=== PATIENT | male | born 1955 | race Caucasian/White ===

== ENCOUNTER 2017-07-11 10:52 | Emergency (ER) | payer OTHER ==
--- OUTSIDE RECORDS SUMMARY | 2017-07-11 10:54 | XMS REPORT | Summary of Care ---
:1955 Author Name Jaimie Terry LVN Address Unavailable Unavailable , Care Team Providers Name Role Phone JOSE GUADALUPE ARREOLA M.D. 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) Status: Active Atypical pneumonia (486, J18.9) Status: Active CHF (congestive heart failure) (428.0, I50.9) Status: Active Atherosclerosis of coronary artery (414.00, I25.10) Status: Active COPD (chronic obstructive pulmonary disease) (496, J44.9) Status: Active Hyperlipidemia (272.4, E78.5) Status: Active Hypertension (401.9, I10) Status: Active Ischemic cardiomyopathy (414.8, I25.5) Status: Active 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 Start : 22-Nov-2016 Active Amiodarone HCl - 200 MG Oral Tablet TAKE ONE TABLET BY MOUTH ONCE DAILY Quantity: 90 Refills: 3 JOSE GUADALUPE ARREOLA M.D. Start : 28-Mar-2017 Active Pantoprazole Sodium 40 MG Oral Tablet Delayed Release TAKE 1 TABLET DAILY. Refills: 0 Active Aspirin 81 MG TABS TAKE 1 TABLET DAILY. Refills: 0 Active Metoprolol Succinate ER 25 MG Oral Tablet Extended Release 24 Hour TAKE ONE TABLET BY MOUTH ONCE DAILY Quantity: 90 Refills: 2 JOSE GUADALUPE ARREOLA M.D. Start : 21-Mar-2017 Active Lisinopril 2.5 MG Oral Tablet TAKE 1 TABLET DAILY DIRECTED. Quantity: 30 Refills: 11 JOSE GUADALUPE ARREOLA M.D. Start : 07-Apr-2016 Active Furosemide 20 MG Oral Tablet TAKE 1 TABLET Daily Quantity: 90 Refills: 1 JOSE GUADALUPE ARREOLA M.D. Start : 19-Apr-2017 Active Tamsulosin HCl - 0.4 MG Oral Capsule Refills: 0 Active Melatonin 3 MG Oral Capsule TAKE 1 CAPSULE BEDTIME Refills: 0 Active LORazepam 1 MG Oral Tablet 1.5 tab a day Refills: 0 Active Hydrocodone-Acetaminophen 10-325 MG Oral Tablet TAKE 2 TABLET PRN Refills: 0 Active Clopidogrel Bisulfate 75 MG Oral Tablet TAKE ONE TABLET BY MOUTH ONCE DAILY Quantity: 90 Refills: 3 JOSE GUADALUPE ARREOLA M.D. Start : 27-Mar-2017 Active Allergies and Adverse Reactions Name Dates Details Keflex (Allergy) Status: Active OxyCONTIN TB12 (Allergy) Status: Active Past Medical History Name Dates Details History of essential hypertension (V12.59, Z86.79) Status: Resolved Procedures Procedure Dates Details Procedures not documented Immunization Name Dates Details Immunizations not documented Family History Name Dates Details Family history of Chronic hypertension (401.9, I10) Status: Active Social History Name Dates Details - Status: Name Dates Details Former smoker Vital Signs Date Test Result Details No Known Vitals to report Results Date Description Value Details Results not documented Plan of Care Name Dates Details Planned Observations Planned Goals not documented Planned Encounters Appointment; JOSE GUADALUPE ARREOLA M.D. On: 24-Aug-2017 13:30 Appointment; RASHI BARNETT M.D. On: 29-Aug-2017 10:15 Instructions Name Dates Details Instructions not documented Encounters Appointment; [facility], DEVICE On: 21-Apr-2015 11:15 Encounter Diagnosis: Problem not documented Appointment; JOSE GUADALUPE ARREOLA M.D. On: 23-Apr-2015 16:30 Encounter Diagnosis: Problem not documented Appointment; MATHEUS MARTINO M.D. On: 28-Apr-2015 10:30 Encounter Diagnosis: Problem not documented Appointment; MATHEUS MARTINO M.D. On: 30-Apr-2015 7:30 Encounter Diagnosis: Problem not documented Appointment; MATHEUS MARTINO M.D. On: 12-May-2015 10:45 Encounter Diagnosis: Problem not documented Appointment; Lalit Miguel M.D. On: 13-May-2015 10:45 Encounter Diagnosis: Problem not documented Appointment; Lalit Miguel M.D. On: 13-May-2015 12:45 Encounter Diagnosis: Problem not documented Appointment; KAVON NICOLE M.D. On: 15-May-2015 9:30 Encounter Diagnosis: Problem not documented Appointment; JOSE GUADALUPE ARREOLA M.D. On: 21-May-2015 16:30 Encounter Diagnosis: Problem not documented Appointment; LITO DAVIS P.A. On: 26-May-2015 10:30 Encounter Diagnosis: Problem not documented Appointment; Lalit Miguel M.D. On: 05-Jun-2015 11:00 Encounter Diagnosis: Problem not documented Appointment; MATHEUS MARTINO M.D. On: 09-Jun-2015 13:00 Encounter Diagnosis: Problem not documented Appointment; MATHEUS MARTINO M.D. On: 16-Jun-2015 10:30 Encounter Diagnosis: Problem not documented Appointment; MATHEUS MARTINO M.D. On: 18-Jun-2015 10:00 Encounter Diagnosis: Problem not documented Appointment; MATHEUS MARTINO M.D. On: 26-Jun-2015 15:30 Encounter Diagnosis: Problem not documented Appointment; MATHEUS MARTINO M.D. On: 07-Jul-2015 15:00 Encounter Diagnosis: Problem not documented Appointment; Lalit Miguel M.D. On: 10-Jul-2015 11:15 Encounter Diagnosis: Problem not documented Appointment; MATHEUS MARTINO M.D. On: 22-Jul-2015 15:30 Encounter Diagnosis: Problem not documented Appointment; MATHEUS MARTINO M.D. On: 11-Aug-2015 11:00 Encounter Diagnosis: Problem not documented Appointment; Lalit Miguel M.D. On: 21-Aug-2015 9:45 Encounter Diagnosis: Problem not documented Appointment; NIRU RAMEY M.D. On: 03-Sep-2015 14:15 Encounter Diagnosis: Problem not documented Appointment; MATHEUS MARTINO M.D. On: 22-Sep-2015 10:30 Encounter Diagnosis: Problem not documented Appointment; Lalit Miguel M.D. On: 23-Oct-2015 9:45 Encounter Diagnosis: Problem not documented Appointment; JOSE GUADALUPE ARREOLA M.D. On: 12-Nov-2015 13:15 Encounter Diagnosis: Problem not documented Appointment; KAVON NICOLE M.D. On: 13-Nov-2015 10:30 Encounter Diagnosis: Problem not documented Appointment; MATHEUS MARTINO M.D. On: 27-Nov-2015 16:00 Encounter Diagnosis: Problem not documented Appointment; MATHEUS MARTINO M.D. On: 15-Dec-2015 10:45 Encounter Diagnosis: Problem not documented Appointment; RASHI BARNETT M.D. On: 26-Jan-2016 10:45 Encounter Diagnosis: Problem not documented Appointment; JOSE GUADALUPE ARREOLA M.D. On: 18-Feb-2016 13:15 Encounter Diagnosis: Problem not documented Appointment; KAVON NICOLE M.D. On: 13-May-2016 10:30 Encounter Diagnosis: Problem not documented Appointment; RASHI BARNETT M.D. On: 26-Jul-2016 11:15 Encounter Diagnosis: Problem not documented Appointment; JOSE GUADALUPE ARREOLA M.D. On: 18-Aug-2016 13:15 Encounter Diagnosis: Problem not documented Appointment; LITO DAVIS P.A. On: 29-Sep-2016 14:45 Encounter Diagnosis: Problem not documented Appointment; JOSE GUADALUPE ARREOLA M.D. On: 16-Feb-2017 13:15 Encounter Diagnosis: Problem not documented Appointment; HUA DUDLEY NP On: 28-Feb-2017 10:45 Encounter Diagnosis: Problem not documented
[2017-07-11] MEDS ORDERED: ONDANSETRON 4 MG/2 ML VIAL ONE ×2 (11:20→14:19)
[2017-07-11] MEDS ORDERED: MEPERIDINE HCL 50 MG/ML AMP ONE (11:20)
[2017-07-11] MEDS ORDERED: NA CHLORIDE 0.9% 500 ML ONE (11:20)
[2017-07-11 11:56] LABS: Absolute Lymphocytes (CBC) 0.6 K/uL (0.7-4.9); Absolute Monocytes 0.4 K/uL (0.1-1.3); Absolute Neutrophil 6.7 K/uL (1.8-8.0); Basophils % 0.7 % (0-1.3); Eosinophils % 2.1 % (0-4.4); Hematocrit 43.8 % (39.6-49.0); Lymphocytes % 8.1 % (15.3-44.8); MCH 28.2 pg (27.0-35.0); MCV 88.6 fL (80-100); Monocytes % 5.2 % (3.3-12.3); RBC Red Blood Cell Count 4.95 M/uL (4.33-5.43)
[2017-07-11 12:15] LABS: Potassium 4.8 mEq/L (3.6-5.0)
[2017-07-11 12:21] LABS: Albumin 3.7 g/dL (3.2-5.5); Bilirubin Direct 0.2 mg/dL (0-0.2); Bilirubin Total 0.9 mg/dL (0.3-1.2); Protein, Total 7.6 g/dL (6.0-8.3)
[2017-07-11] MEDS ORDERED: NA CHLORIDE 0.9% 1,000 ML ONE (13:06)
[2017-07-11] MEDS ORDERED: MEPERIDINE HCL 25 MG/0.5 ML ONE ×2 (14:14→17:04)
--- NOTE | 2017-07-11 14:48 | RAD REPORT ---
EXAM DESCRIPTION: CT - Abdomen Pelvis Wo Contrast - 07/11/2017 2:29 pm CLINICAL HISTORY: Abdominal pain. COMPARISON: None TECHNIQUE: CT imaging of the abdomen and pelvis was performed without contrast. Solid organ, bowel a nd vascular assessment is limited due to lack of IV and oral contrast. All CT scans are performed using dose optimization technique as appropriate and may include automated exposure control or mA/KV adjustment according to patient size. FINDINGS: Ill-defined pulmonary opacities are present in the right lower lobe. A small hiatal hernia is present. Mild free fluid is seen around the liver edge. Small vague low-density lesion is seen in the left lob e of the liver measuring 6 mm. The spleen and pancreas are within normal limits. A nodule is present in the adrenal gland measuring 12 mm, likely benign adenoma. Left adrenal gland also shows subtle nod ularity measuring 9 mm. No renal stone or hydronephrosis. No perinephric abnormality seen. Multiple ventral hernias are present, including a large fat containing ventral hernia at the level of L1-2 with a hernia defect of 4.5 cm. More inferiorly, a focal ventral hernia is seen containing a sh ort segment of the transverse colon without evidence of incarceration. Volume of stool proximal to th is hernia is greater than distally which could indicate some degree of mechanical obstruction. There is also fecalization of the terminal ileum present. The appendix is normal. A prominent diverticulum is seen emanating from the sigmoid colon in the pelvis (image 75/99). The di verticulum measures 2.5 cm. Extraluminal air is seen surrounding this diverticulum as well as extendi ng into the adjacent pelvic fat and right lower quadrant fat. The osseous structures are within normal limits.Aortobifemoral bypass likely present. IMPRESSION: A 2.5 cm diverticulum is suspected emanating from the sigmoid colon in the pelvis. Extra luminal air bubbles are present surrounding this region extending into the pelvic fat suggesting mild perforation is present. Followup colonoscopy would be suggested. Multiple ventral hernias are present, including a a inferior ventral hernia along the midline which h as a complex appearance and contains a short segment of the transverse colon. Proximal to this hernia colonic retention of stool is present likely indicates that a mild mechanical obstruction of the col on is present. Mild free fluid along the hepatic edge. A limited non-contrast examination was performed as detailed.
[2017-07-11] MEDS ORDERED: LEVALBUTEROL 1.25 MG/3 ML NEB ONE (15:26)
[2017-07-11] MEDS ORDERED: PIPER/TAZO/NS 3.375gm 3.375 GM/100 ML BAG ONE (15:26)
[2017-07-11 16:25] LABS: Urine Bacteria <20 /HPF (NONE SEEN); Urine RBC <5 /HPF (NONE SEEN)
[2017-07-11 16:26] LABS: Urine Culture Reflex Order NOT NEEDED; Urine Sperm PRESENT (NONE SEEN)
--- NOTE | 2017-07-11 16:57 | ER ---
Nurse's Notes [facility] Name: Dyllan Narvaez Age: 61 yrs Sex: Male : 1955 Arrival Date: 07/11/2017 Time: 10:56 Bed 7 Private MD: Ghanshyam Benavides T Diagnosis: Diverticulitis with perforation, without abscess;Vomiting Presentation: 07/11 10:59 Presenting complaint: Patient states: "bad pains in my lower right abdomen" +V x 3x. tw2 Transition of care: patient was not received from another setting of care. Onset of symptoms was July 11, 2017. Initial Sepsis Screen: Does the patient meet any 2 criteria? No. Patient's initial sepsis screen is negative. Does the patient have a suspected source of infection? No. Patient's initial sepsis screen is negative. Care prior to arrival: None. 10:59 Method Of Arrival: Wheelchair tw2 10:59 Acuity: HAYLEY 3 tw2 Historical: - Allergies: 11:04 No Known Drug Allergies; tw2 - Home Meds: 11:04 amiodarone 200 mg Oral tab 1 tab once daily [Active]; atorvastatin 40 mg oral tab 1 tab tw2 once daily [Active]; clopidogrel 75 mg oral tab 1 tab once daily [Active]; lisinopril 2.5 mg Oral tab 1 tab once daily [Active]; pantoprazole 40 mg oral TbEC 1 tab once daily [Active]; furosemide 20 mg Oral tab 1 tab once daily [Active]; aspirin 81 mg Oral TbEC 1 tab once daily [Active]; metoprolol tartrate 25 mg Oral tab 1 tab once daily [Active]; tamsulosin 0.4 mg oral cp24 1 cap once daily [Active]; lorazepam 1.5 mg Oral tab [Active]; melatonin 3 mg Oral tab [Active]; - PMHx: 11:04 TIA; tw2 - PSHx: 11:04 CABG; BKA; Heart stents; tw2 - Immunization history:: Adult Immunizations up to date. - Social history:: Smoking status: Patient/guardian denies using tobacco. - Family history:: not pertinent. - Hospitalizations: : No recent hospitalization is reported. Screenin:41 Abuse screen: Denies threats or abuse. Denies injuries from another. Nutritional aj screening: No deficits noted. Tuberculosis screening: No symptoms or risk factors identified. Fall Risk None identified. Assessment: 11:41 General: Appears in no apparent distress. uncomfortable. Pain: Complains of pain in aj abdomen. Neuro: Level of Consciousness is awake, alert, obeys commands, Oriented to person, place, time, situation, Appropriate for age. Respiratory: Airway is patent Respiratory effort is even, unlabored, Respiratory pattern is regular, symmetrical. GI: Abdomen is flat, Bowel sounds present X 4 quads. Abdomen is tender to palpation in right lower quadrant and left lower quadrant. GI: Reports nausea, vomiting. Derm: Skin is intact, is healthy with good turgor, Skin is pink, warm \\T\\ dry. normal. 12:39 Reassessment: Patient was resting comfortably in bed until blood pressure cuff was aj placed back on his arm. Patient then began complaining of pain and refusing to drink PO contrast. Provider notified of patient's complaints. Provider spoke with patient regarding importance of drinking PO contrast. 13:13 Reassessment: Pt finished drinking oral contrast at 1240, [place] in [place] notified. hb 16:04 Reassessment: Patient refused NG tube. Provider notified. aj 19:00 General: Appears uncomfortable, Behavior is calm, cooperative, appropriate for age. ea Pain: Complains of pain in left lower quadrant and right lower quadrant and abdomen Quality of pain is described as aching, crampy, Is continuous. Neuro: Level of Consciousness is awake, alert, obeys commands, Oriented to person, place, time, situation. Cardiovascular: Heart tones S1 S2 present. Respiratory: Airway is patent Respiratory effort is even, unlabored, Respiratory pattern is regular, symmetrical. GI: Abdomen is non-distended, Bowel sounds present X 4 quads. Abdomen is tender to palpation in left lower quadrant and right lower quadrant. Derm: Skin is intact, is healthy with good turgor, Skin is pink, warm \\T\\ dry. 20:55 Reassessment: Patient and/or family updated on plan of care and expected duration. Pain ea level reassessed. Patient is alert, oriented x 3, equal unlabored respirations, skin warm/dry/pink. EMS at facility for transfer. Vital Signs: 11:00 BP 168 / 156; Pulse 76; Resp 19; Temp 97.6(TE); Pulse Ox 100% ; Weight 90.72 kg (R); tw2 Height 5 ft. 11 in. (180.34 cm); Pain 10/10; 11:54 BP 131 / 48; Pulse 56; Resp 16; Pulse Ox 97% on 2 lpm NC; aj 12:29 BP 93 / 57; Pulse 53; Resp 14; Pulse Ox 92% on 2 lpm NC; aj 13:09 BP 114 / 54; Pulse 58; Resp 15; Pulse Ox 92% on 2 lpm NC; aj 15:36 BP 120 / 56; Pulse 68; Resp 25; Pulse Ox 95% on R/A; aj 16:04 BP 120 / 63; Pulse 71; Resp 28; Pulse Ox 93% on 4 lpm NC; aj 18:10 BP 110 / 50; Pulse 67; Resp 24; Pulse Ox 93% on 4 lpm NC; aj 19:20 BP 126 / 55; Pulse 68; Resp 18; Temp 98.6; Pulse Ox 96% on 4 lpm NC; Pain 8/10; ea 20:17 BP 106 / 49; Pulse 67; Resp 20; Pulse Ox 96% on 4 lpm NC; Pain 5/10; ea 20:30 BP 105 / 50; Pulse 60; Resp 20 S; Pulse Ox 96% on 4 lpm NC; ea 11:00 Body Mass Index 27.89 (90.72 kg, 180.34 cm) tw2 ED Course: 10:56 Patient arrived in ED. mr 10:56 Ghanshyam Benavides MD is Private Physician. mr 11:00 Triage completed. tw2 11:00 Arm band placed on. tw2 11:11 Deny Washington MD is Attending Physician. rn 11:17 Janet Clemens, EVE is Primary Nurse. aj 11:41 Patient has correct armband on for positive identification. aj 11:41 Inserted saline lock: 20 gauge in left antecubital area, using aseptic technique. Blood aj collected. 14:28 Abdomen In Process Unspecified. EDMS 18:50 Report given to Tanisha PRADO at [facility]. aj 19:45 Jane Morales, EVE is Primary Nurse. ea 20:55 No provider procedures requiring assistance completed. Patient transferred, IV remains ea in place. Administered Medications: 11:35 Drug: Demerol 50 mg Route: IVP; Site: left antecubital; aj 16:11 Follow up: Response: Pain is decreased aj 11:35 Drug: Zofran 4 mg Route: IVP; Site: left antecubital; aj 16:11 Follow up: Response: No adverse reaction; Nausea unchanged aj 11:35 Drug: NS 0.9% 500 ml Route: IV; Rate: bolus; Site: left antecubital; aj 19:00 Follow up: Response: No adverse reaction; IV Status: Completed infusion; IV Intake: ea 500ml 13:14 Drug: NS 0.9% 1000 ml Route: IV; Rate: 1000 ml; Site: left antecubital; hb 19:00 Follow up: IV Intake: 1000ml ea 19:00 Follow up: Response: No adverse reaction ea 19:00 Follow up: Response: No adverse reaction; IV Status: Completed infusion ea 14:20 Drug: Zofran 4 mg Route: IVP; Site: left antecubital; dm5 16:10 Follow up: Response: Nausea unchanged aj 14:22 Drug: Demerol 25 mg Route: IVP; Site: left antecubital; dm5 16:10 Follow up: Response: Pain is decreased aj 14:25 CANCELLED (other order used): Zofran 2 mg IVP once; over 2 minutes dm5 15:45 Drug: Zosyn 3.375 grams Route: IVPB; Infused Over: 60 mins; Site: left antecubital; aj 19:00 Follow up: Response: No adverse reaction; IV Status: Completed infusion ea 15:45 Drug: Xopenex 1.25 mg Route: Inhalation; aj 17:12 Drug: Demerol - Meperidine 12.5 mg Route: IVP; Site: right antecubital; aj 19:00 Follow up: Response: No adverse reaction ea 20:06 Drug: morphine 4 mg Route: IVP; Site: left antecubital; ea 20:29 Follow up: Response: No adverse reaction; Pain is decreased ea Intake: 19:00 IV: 1000ml; Total: 1000ml. ea 19:00 IV: 500ml; Total: 1500ml. ea Outcome: 16:57 ER care complete, transfer ordered by . rn 19:00 Instructed on the need for transfer. ea 20:55 Transferred by ground EMS to [facility], Transfer form completed. ea 20:55 Condition: stable 20:57 Patient left the ED. ea Signatures: Dispatcher [facility] Saritha Silva, RN RN dm5 Janet Clemens RN RN aj Rivera, Maria mr Deny Washington MD MD rn Baxter, Heather, RN RN Caity Woods RN RN tw2 aJne Morales RN RN ea Corrections: (The following items were deleted from the chart) 11:06 11:00 Pulse 76bpm; Resp 19bpm; Pulse Ox 100%; Temp 97.6F Temporal; 90.72 kg Reported; tw2 Height 5 ft. 11 in.; BMI: 27.8; Pain 10/10; tw2 13:10 13:09 BP 117 / 54; Pulse 58bpm; Resp 15bpm; Pulse Ox 92% 2 lpm Nasal Cannula; zackery vizcarra 14:24 14:20 Zofran 2 mg IVP in left antecubital dm5 dm5
--- NOTE | 2017-07-11 16:58 | EDPHYS ---
Physician Documentation [facility] Name: Dyllan Narvaez Age: 61 yrs Sex: Male : 1955 Arrival Date: 07/11/2017 Time: 10:56 Bed 7 Private MD: Ghanshyam Benavides T ED Physician Deny Washington HPI: 07/11 11:17 This 61 yrs old Male presents to ER via Wheelchair with complaints of rn Abdominal Pain. 11:17 The patient presents with abdominal pain right lower quadrant. Onset: The rn symptoms/episode began/occurred 1 week(s) ago. The symptoms do not radiate. Associated signs and symptoms: Pertinent positives: nausea and vomiting, constipation, nausea, vomiting. The symptoms are described as crampy, intermittent, sharp. Modifying factors: The symptoms are alleviated by nothing, the symptoms are aggravated by touching the area. The patient has experienced a previous episode. The patient has not recently seen a physician. Reports RLQ abd pain, not getting better over last week, assoc with nausea/vomiting/constipation, no hx of aortic aneurysm, s/p aorto-fem bypass bilaterally, constant pain worse with movement and touching area. No hx of kidney stones. . Historical: - Allergies: 11:04 No Known Drug Allergies; tw2 - Home Meds: 11:04 amiodarone 200 mg Oral tab 1 tab once daily [Active]; atorvastatin 40 mg oral tab 1 tab tw2 once daily [Active]; clopidogrel 75 mg oral tab 1 tab once daily [Active]; lisinopril 2.5 mg Oral tab 1 tab once daily [Active]; pantoprazole 40 mg oral TbEC 1 tab once daily [Active]; furosemide 20 mg Oral tab 1 tab once daily [Active]; aspirin 81 mg Oral TbEC 1 tab once daily [Active]; metoprolol tartrate 25 mg Oral tab 1 tab once daily [Active]; tamsulosin 0.4 mg oral cp24 1 cap once daily [Active]; lorazepam 1.5 mg Oral tab [Active]; melatonin 3 mg Oral tab [Active]; - PMHx: 11:04 TIA; tw2 - PSHx: 11:04 CABG; BKA; Heart stents; tw2 - Immunization history:: Adult Immunizations up to date. - Social history:: Smoking status: Patient/guardian denies using tobacco. - Family history:: not pertinent. - Hospitalizations: : No recent hospitalization is reported. ROS: 11:17 Constitutional: Negative for fever, chills, and weight loss, Eyes: Negative for injury, rn pain, redness, and discharge, Neck: Negative for injury, pain, and swelling, Cardiovascular: Negative for chest pain, palpitations, and edema, Respiratory: Negative for shortness of breath, cough, wheezing, and pleuritic chest pain, Abdomen/GI: Negative for diarrhea Back: Negative for injury and pain, MS/Extremity: Negative for injury and deformity, Skin: Negative for injury, rash, and discoloration, Neuro: Negative for headache, weakness, numbness, tingling, and seizure. Exam: 11:17 Constitutional: This is a well developed, well nourished patient who is awake, alert, rn and in no acute distress. Head/Face: Normocephalic, atraumatic. Eyes: Pupils equal round and reactive to light, extra-ocular motions intact. Lids and lashes normal. Conjunctiva and sclera are non-icteric and not injected. Cornea within normal limits. Periorbital areas with no swelling, redness, or edema. Cardiovascular: Regular rate and rhythm with a normal S1 and S2. No gallops, murmurs, or rubs. Normal PMI, no JVD. No pulse deficits. Respiratory: Lungs have equal breath sounds bilaterally, clear to auscultation and percussion. No rales, rhonchi or wheezes noted. No increased work of breathing, no retractions or nasal flaring. Abdomen/GI: soft, + moderate tenderness RLQ, + central abd protruberant but soft, no discoloration Back: No spinal tenderness. No costovertebral tenderness. Full range of motion. MS/ Extremity: Pulses equal, no cyanosis. Neurovascular intact. Full, normal range of motion. Equal circumference. Neuro: Awake and alert, GCS 15, oriented to person, place, time, and situation. Cranial nerves II-XII grossly intact. Motor strength 5/5 in all extremities. Sensory grossly intact. Vital Signs: 11:00 BP 168 / 156; Pulse 76; Resp 19; Temp 97.6(TE); Pulse Ox 100% ; Weight 90.72 kg (R); tw2 Height 5 ft. 11 in. (180.34 cm); Pain 10/10; 11:54 BP 131 / 48; Pulse 56; Resp 16; Pulse Ox 97% on 2 lpm NC; aj 12:29 BP 93 / 57; Pulse 53; Resp 14; Pulse Ox 92% on 2 lpm NC; aj 13:09 BP 114 / 54; Pulse 58; Resp 15; Pulse Ox 92% on 2 lpm NC; aj 15:36 BP 120 / 56; Pulse 68; Resp 25; Pulse Ox 95% on R/A; aj 16:04 BP 120 / 63; Pulse 71; Resp 28; Pulse Ox 93% on 4 lpm NC; aj 18:10 BP 110 / 50; Pulse 67; Resp 24; Pulse Ox 93% on 4 lpm NC; aj 19:20 BP 126 / 55; Pulse 68; Resp 18; Temp 98.6; Pulse Ox 96% on 4 lpm NC; Pain 8/10; ea 20:17 BP 106 / 49; Pulse 67; Resp 20; Pulse Ox 96% on 4 lpm NC; Pain 5/10; ea 20:30 BP 105 / 50; Pulse 60; Resp 20 S; Pulse Ox 96% on 4 lpm NC; ea 11:00 Body Mass Index 27.89 (90.72 kg, 180.34 cm) tw2 MDM: 11:11 Patient medically screened. rn 15:12 ED course: Called Dr baugh, no answer, got voicemail. . rn 15:13 ED course: Contacted Dr. Baugh, requests transfer to [place], family requests rn felisha walters due to cardiac stents/cardiology there as well as aorto-fem bypass.. 15:14 ED course: O2 sat dropped to 80%, hx of chf, fluids stopped, patient states always rn breaths like this, isn't abnormally sob, also hx of copd, placed on oxygen with some improvement. . 16:31 ED course: Accepted by Dr. Contreras, for transfer to [facility] for higher level of care, rn requests admit to hospitalist. . 16:47 Differential diagnosis: bowel obstruction, diverticulitis. Data reviewed: vital signs, rn nurses notes, lab test result(s), radiologic studies, CT scan, and as a result, I will admit patient. Counseling: I had a detailed discussion with the patient and/or guardian regarding: the historical points, exam findings, and any diagnostic results supporting the discharge/admit diagnosis, lab results, radiology results, the need to transfer to another facility. Response to treatment: the patient's symptoms have mildly improved after treatment, and as a result, I will admit patient. ED course: Accepted for transfer to [facility]. . 07/11 11:17 Order name: Basic Metabolic Panel; Complete Time: 12:59 rn 07/11 11:17 Order name: CBC with Diff; Complete Time: 12:09 rn 07/11 11:17 Order name: Creatinine for Radiology; Complete Time: 12:59 rn 07/11 11:17 Order name: Hepatic Function; Complete Time: 12:59 rn 07/11 11:17 Order name: Lipase; Complete Time: 12:59 rn 07/11 11:17 Order name: Urine Microscopic Only; Complete Time: 16:27 rn 07/11 14:26 Order name: Abdomen ; Complete Time: 14:50 EDMS 07/11 17:43 Order name: Urine Dipstick--Ancillary (enter results) mw2 07/11 11:17 Order name: IV Saline Lock; Complete Time: 11:41 rn 07/11 11:17 Order name: Labs collected and sent; Complete Time: 11:41 rn 07/11 11:17 Order name: Urine Dipstick-Ancillary (obtain specimen); Complete Time: 18:15 rn 07/11 15:16 Order name: NPO; Complete Time: 15:25 rn Administered Medications: 11:35 Drug: Demerol 50 mg Route: IVP; Site: left antecubital; aj 16:11 Follow up: Response: Pain is decreased aj 11:35 Drug: Zofran 4 mg Route: IVP; Site: left antecubital; aj 16:11 Follow up: Response: No adverse reaction; Nausea unchanged aj 11:35 Drug: NS 0.9% 500 ml Route: IV; Rate: bolus; Site: left antecubital; aj 19:00 Follow up: Response: No adverse reaction; IV Status: Completed infusion; IV Intake: ea 500ml 13:14 Drug: NS 0.9% 1000 ml Route: IV; Rate: 1000 ml; Site: left antecubital; hb 19:00 Follow up: IV Intake: 1000ml ea 19:00 Follow up: Response: No adverse reaction ea 19:00 Follow up: Response: No adverse reaction; IV Status: Completed infusion ea 14:20 Drug: Zofran 4 mg Route: IVP; Site: left antecubital; dm5 16:10 Follow up: Response: Nausea unchanged aj 14:22 Drug: Demerol 25 mg Route: IVP; Site: left antecubital; dm5 16:10 Follow up: Response: Pain is decreased aj 14:25 CANCELLED (other order used): Zofran 2 mg IVP once; over 2 minutes dm5 15:45 Drug: Zosyn 3.375 grams Route: IVPB; Infused Over: 60 mins; Site: left antecubital; aj 19:00 Follow up: Response: No adverse reaction; IV Status: Completed infusion ea 15:45 Drug: Xopenex 1.25 mg Route: Inhalation; aj 17:12 Drug: Demerol - Meperidine 12.5 mg Route: IVP; Site: right antecubital; aj 19:00 Follow up: Response: No adverse reaction ea 20:06 Drug: morphine 4 mg Route: IVP; Site: left antecubital; ea 20:29 Follow up: Response: No adverse reaction; Pain is decreased ea Disposition: 18 16:57 Transfer ordered to [facility]. Diagnosis are Diverticulitis with perforation, without abscess, Vomiting. - Reason for transfer: Higher level of care. - Accepting physician is Dr. Contreras. - Condition is Stable. - Problem is new. - Symptoms have improved. Signatures: Dispatcher [employer] EDMS Saritha More RN RN dm5 Myers, Amanda, RN RN aj Nieto, Roman, MD MD rn Baxter, Heather, RN RN hb Wise, Tara, RN RN [facility] Jane Morales RN RN ea Corrections: (The following items were deleted from the chart) 14:25 14:23 Zofran 2 mg IVP once; over 2 minutes ordered. dm5 dm5 14:25 14:24 Zofran 2 mg IVP once; over 2 minutes given. dm5 dm5 14:25 14:24 Zofran 2 mg IVP once; over 2 minutes ordered. dm5 dm5 14:26 11:18 Abdomen Pelvis W Con+CT.RAD.BRZ ordered. EDMS EDMS 16:05 15:17 NG Tube ordered. adry vizcarra
[2017-07-11 18:06] LABS: Urine Blood NEGATIVE (NEG); Urine Glucose NEGATIVE (NEG); Urine Protein NEGATIVE (NEG)
[2017-07-11] MEDS ORDERED: MORPHINE 4 MG/ML SYR ONE (19:57)
== END 2017-07-11 20:57 | disposition short-term general hospital (02) ==
LOC: ER 10:52
DX: K57.80 Diverticulitis of intestine, part unspecified, with perforation and abscess without bleeding (principal); Z95.1 Presence of aortocoronary bypass graft; Z95.818 Presence of other cardiac implants and grafts; Z79.82 Long term (current) use of aspirin
CPT/HCPCS: 36415; 74176; 80048; 80076; 83690; 85025; J2175 ×3; J2405 ×2; J2543; J7030; 81003; 81015; 99285

== ENCOUNTER 2017-09-01 15:17 | Emergency (ER) | payer OTHER ==
--- OUTSIDE RECORDS SUMMARY | 2017-09-01 15:20 | XMS REPORT | Summary of Care ---
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 Start : 27-Mar-2017 Active Bumetanide 1 MG Oral Tablet TAKE 1 TABLET TWICE DAILY. Quantity: 60 Refills: 0 JOSE GUADALUPE ARREOLA M.D. Start : 31-Aug-2017 Active Allergies and Adverse Reactions Name Dates [...] Encounters Appointment; JOSE GUADALUPE ARREOLA M.D. On: 07-Sep-2017 16:00 Interventions Provided Medication ChangesBumetanide 1 MG Oral Tablet - Start Instructions Name Dates Details Instructions not documented Encounters Appointment; NIRU RAMEY M.D. On: 03-Sep-2015 14:15 [...]
--- OUTSIDE RECORDS SUMMARY | 2017-09-01 15:20 | XMS REPORT | Clinical Summary ---
:1955 Author Organization [facility] Address [address] [place] [address] Care Team Providers Name Role Phone Asked, No Pcp Primary Care Provider Unavailable Allergies Active Allergy Reactions Severity Noted Date Comments Cephalexin Dermatitis High 07/11/2017 Itching all over the body Oxycodone Other (See Comments) High 07/11/2017 hallucination Current Medications Prescription Sig. Disp. Refills Start Date End Date Status amIODarone Take 200 mg by Active (PACERONE) 200 MG mouth daily. tablet pantoprazole Take by mouth Active (PROTONIX) 40 MG EC daily. tablet tamsulosin (FLOMAX) Take 0.4 mg by Active 0.4 mg mouth daily. capsule,extended release 24hr LORAZepam (ATIVAN) Take 1.5 mg by Active 0.5 MG tablet mouth daily. sodium/pot/mag/calc Infuse into a Active /chlor/acet (TPN venous ELECTROLYTES IV) catheter. 65ml/hr furosemide (LASIX) Take 20 mg by Active 40 mg/4 mL solution mouth daily. oral solution atorvastatin Take 40 mg by Active (LIPITOR) 40 MG mouth daily. tablet clopidogrel Take 75 mg by Active (PLAVIX) 75 mg mouth daily. tablet aspirin (ECOTRIN) Take 81 mg by Active 81 MG enteric mouth daily. coated tablet clopidogrel Take 75 mg by 07/26/2017 Discontinued (PLAVIX) 75 mg mouth daily. tablet lisinopril Take 2.5 mg by 07/26/2017 Discontinued (PRINIVIL,ZESTRIL) mouth daily. 2.5 mg tablet furosemide (LASIX) Take 20 mg by 07/26/2017 Discontinued 20 mg tablet mouth daily. aspirin (ECOTRIN) Take 81 mg by 07/26/2017 Discontinued 81 MG enteric mouth daily. coated tablet metoprolol tartrate Take 25 mg by 07/26/2017 Discontinued (LOPRESSOR) 25 mg mouth daily. tablet melatonin 3 mg Take by mouth 07/26/2017 Discontinued tablet nightly. acetaminophen Take 2 tablets 07/26/2017 08/25/2017 (TYLENOL) 325 MG (650 mg total) tablet by mouth every 6 (six) hours as needed for mild pain for up to 30 days. micafungin 100 mg Infuse 100 mg 1 each 0 07/27/2017 08/04/2017 in sodium chloride into a venous 0.9 % MBP 100 mL catheter daily IVPB for 8 days. heparin Inject 1 mL 60 mL 0 07/26/2017 08/25/2017 sodium,porcine (5,000 Units (HEPARIN, PORCINE,) total) under 5,000 unit/mL the skin every injection 12 (twelve) hours for 30 days. sennosides-docusate Take 1 tablet 60 tablet 0 07/26/2017 08/25/2017 sodium (SENOKOT-S) by mouth 2 8.6-50 mg per (two) times a tablet day for 30 days. montelukast Take 1 tablet 30 tablet 0 07/26/2017 08/25/2017 (SINGULAIR) 10 mg (10 mg total) tablet by mouth nightly for 30 days. piperacillin-tazoba Infuse 3.375 g 07/26/2017 08/04/2017 ctam (ZOSYN) 3.375 into a venous gram in 50 mL catheter every Mini-Bag Plus 8 (eight) hours for 9 days. zolpidem (AMBIEN) 5 Take 1 tablet 07/26/2017 08/26/2017 MG tablet (5 mg total) by mouth nightly as needed for sleep for up to 31 days. vancomycin 750 mg, Infuse 1,250 1 each 0 07/26/2017 08/04/2017 vancomycin 500 mg mg into a in sodium chloride venous 0.9% 250 mL IVPB catheter daily for 9 days. Active Problems Problem Noted Date Diverticulitis of colon with perforation 07/11/2017 Encounters Date Type Specialty Care Team Description 08/25/2017 Hospital Encounter Shane Tovar MD Perforation of intestine 08/22/2017 Transcribe Orders Shane Tovar MD Perforation of intestine (Primary Dx) 08/04/2017 Hospital Encounter Shane Tovar MD Perforation of intestine 08/04/2017 Ancillary Orders Shane Tovar MD Perforation of intestine 08/03/2017 Hospital Encounter Shane Tovar MD 08/03/2017 Transcribe Orders Shane Tovar MD Perforation of intestine (Primary Dx) 08/03/2017 Ancillary Orders Shane Tovar MD 07/11/2017 - Hospital Encounter General Surgery Chayo Gaston 07/26/2017 MD Milly Barirentos Steven Kuei-Ku, MD after 08/31/2016 Social History Tobacco Use Types Packs/Day Years Used Date Former Smoker Cigarettes Quit: 11/03/2014 Smokeless Tobacco: Never Used Alcohol Use Drinks/Week oz/Week Comments No Sex Assigned at Date Recorded Not on file Last Filed Vital Signs Vital Sign Reading Time Taken Blood Pressure 128/61 08/25/2017 2:35 PM CDT Pulse 85 08/25/2017 2:35 PM CDT Temperature 36 C (96.8 F) 08/25/2017 2:49 PM CDT Respiratory Rate 32 08/25/2017 2:35 PM CDT Oxygen Saturation 93% 08/25/2017 2:35 PM CDT Inhaled Oxygen Concentration - - Weight 90.7 kg (200 lb) 08/25/2017 12:40 PM CDT Height 180.3 cm (5' 11") 08/25/2017 12:40 PM CDT Body Mass Index 27.89 08/25/2017 12:40 PM CDT Plan of Treatment Date Type Specialty Care Team Description 09/06/2017 Office Visit General Surgery Gentry Triplett MD [address] [address] Health Maintenance Due Date Last Done Comments COLON CANCER SCREENING 2004 SHINGRIX VACCINE (#1) 2004 ZOSTER VACCINE 2014 INFLUENZA VACCINE 10/18/2017 Implants Implanted Type Area Database Report Writer Device Expiration Model / Identifier Date Serial / Lot Catheter Cv Powerline Dlmn Al 6fr - [id number] Surgical N/A: N/A BARD ACCESS [id number] / Implanted: 08/25/2017 (Quantity not on file) Implants; SYSTEMS / Expanders; Extenders; Surgical Wires Procedures Procedure Name Priority Date/Time Associated Comments Diagnosis ECHOCARDIOGRAM 2D Routine 07/12/2017 11:16 Results for this COMPLETE W MMODE AM CDT procedure are in SPECTRAL COLOR DOPPLER the results (66534) section. after 08/31/2016 Results IR Tunneled Central Line Placement (08/25/2017 2:26 PM) Specimen Performing Laboratory [facility] [address] [place] [address] Narrative Procedure: Placement of tunneled central venous catheter Clinical History: The patient needs long-term intravenous access for TPN Sedation: Versed and fentanyl were utilized for monitored conscious sedation during the procedure. The patient was transferred to the recovery room at the end of the procedure for further monitoring. Xnuv-jl-cjpq time 15 minutes Anesthesia: Local Radiation dose: Ka,r=5 mGy Technique: After discussing the risks and benefits of the procedure and moderate conscious sedation with the patient he agreed to the procedure. All elements of maximal sterile barrier technique were followed. A recorded image of the patent right internal jugular vein was obtained. After prepping and draping the right side of the neck and chest, local anesthesia was administered and the internal jugular vein accessed with a 21-gauge needle under real-time ultrasound guidance. A 0.018 guidewire was advanced to the right atrium under fluoroscopy. Local anesthesia was then administered from the infraclavicular region to the initial puncture site. The 6.0 Bangladeshi, double-lumen Powerline was brought through the tunnel. A 5 Bangladeshi catheter was placed over the initially placed guidewire and an Amplatz guidewire advanced into the inferior vena cava. After dilatation , the Powerline was placed with its tip in the superior vena cava. The lumens aspirated and injected easily. They were flushed with saline. The initial puncture site was sealed with Dermabond and the catheter exit site closed with 2-0 silk suture. Complications: None Impression: Successful placement of a right internal jugular vein tunneled central venous catheter as described above. Blood Loss: Less than 1 mL [facility]-[id number] Procedure Note Interface, Radiology Results Incoming - 08/25/2017 2:49 PM CDT Procedure: Placement of tunneled central venous catheter Clinical History: The patient needs long-term intravenous access for TPN Sedation: Versed and fentanyl were utilized for monitored conscious sedation during the procedure. The patient was transferred to the recovery room at the end of the procedure for further monitoring. Krli-jc-rbmz time 15 minutes Anesthesia: Local Radiation dose: Ka,r=5 mGy Technique: After discussing the risks and benefits of the procedure and moderate conscious sedation with the patient he agreed to the procedure. All elements of maximal sterile barrier technique were followed. A recorded image of the patent right internal jugular vein was obtained. After prepping and draping the right side of the neck and chest, local anesthesia was administered and the internal jugular vein accessed with a 21- gauge needle under real-time ultrasound guidance. A 0.018 guidewire was advanced to the right atrium under fluoroscopy. Local anesthesia was then administered from the infraclavicular region to the initial puncture site. The 6.0 Bangladeshi, double-lumen Powerline was brought through the tunnel. A 5 Bangladeshi catheter was placed over the initially placed guidewire and an Amplatz guidewire advanced into the inferior vena cava. After dilatation , the Powerline was placed with its tip in the superior vena cava. The lumens aspirated and injected easily. They were flushed with saline. The initial puncture site was sealed with Dermabond and the catheter exit site closed with 2-0 silk suture. Complications: None Impression: Successful placement of a right internal jugular vein tunneled central venous catheter as described above. Blood Loss: Less than 1 mL [facility]-[id number] CT Guided Abscess Drain (08/04/2017 12:32 PM) Specimen Performing Laboratory [facility] [address] [place] [address] Narrative EXAMINATION:CT GUIDED ABSCESS DRAIN CLINICAL HISTORY:K63.1 Perforation of intestine (nontraumatic), k63.1 COMPARISON:None. TECHNIQUE: The risks, benefits, and alternatives were discussed with the patient and his and written informed consent was obtained. The limitations of the procedure were discussed in detail. Axial images through the abscess were obtained. CT imaging was performed with iterative reconstruction techniques and/or automated exposure control to reduce radiation dose.A site for needle injury was selected and the skin was prepped and draped in the usual sterile fashion. After local administration of 1% buffered lidocaine , a tiny dermatotomy was made. Using CT fluoroscopic guidance, a 12 Bangladeshi catheter was placed into the gas and fluid collection.. The catheter was secured to the skin and placed to gravity drainage. The fluid was sent for the requested studies including Gram stain, sensitivity, and cultures. The patient tolerated the procedure without difficulty and was discharged to the radiology observation area for monitoring prior to discharge. Conscious sedation: A combination of intravenous Versed and fentanyl was given. The patient was monitored throughout the procedure and in the postprocedure recovery area. Fczk-cr-xsab patient to physician sedation time was 14 minutes. EBL: None. Complications: None. Assistants: None. IMPRESSION: Successful placement of 12 Bangladeshi catheter into the gas and fluid collection in the anterior abdomen. [facility]-[id number] Procedure Note [facility], Radiology Results Incoming - 08/04/2017 3:32 PM CDT EXAMINATION: CT GUIDED ABSCESS DRAIN CLINICAL HISTORY: K63.1 Perforation of intestine (nontraumatic), k63.1 COMPARISON: None. TECHNIQUE: The risks, benefits, and alternatives were discussed with the patient and his and written informed consent was obtained. The limitations of the procedure were discussed in detail. Axial images through the abscess were obtained. CT imaging was performed with iterative reconstruction techniques and/or automated exposure control to reduce radiation dose. A site for needle injury was selected and the skin was prepped and draped in the usual sterile fashion. After local administration of 1% buffered lidocaine , a tiny dermatotomy was made. Using CT fluoroscopic guidance, a 12 Bangladeshi catheter was placed into the gas and fluid collection.. The catheter was secured to the skin and placed to gravity drainage. The fluid was sent for the requested studies including Gram stain, sensitivity, and cultures. The patient tolerated the procedure without difficulty and was discharged to the radiology observation area for monitoring prior to discharge. Conscious sedation: A combination of intravenous Versed and fentanyl was given. The patient was monitored throughout the procedure and in the postprocedure recovery area. Sbvx-qi-icla patient to physician sedation time was 14 minutes. EBL: None. Complications: None. Assistants: None. IMPRESSION: Successful placement of 12 Bangladeshi catheter into the gas and fluid collection in the anterior abdomen. [facility]-[id number] Aerobic culture (08/04/2017 11:30 AM) Component Value Ref Range Aerobic culture isolate No growth after 3 days. Comment: Specimen Information Specimen Source: Abscess Specimen Site: ABDOMEN Specimen Performing Laboratory Abscess - Abdomen [facility] DEPARTMENT OF PATHOLOGY AND GENOMIC MEDICINE [address] [place] [address] Gram stain (08/04/2017 11:30 AM) Component Value Ref Range Gram stain isolate Occasional WBC's No organisms seen Comment: Specimen Information Specimen Source: Abscess Specimen Site: ABDOMEN Specimen Performing Laboratory Abscess - Abdomen [facility] DEPARTMENT OF PATHOLOGY AND GENOMIC MEDICINE [address] [place] [address] Anaerobic culture (08/04/2017 11:30 AM) Component Value Ref Range Anaerobic culture isolate No anaerobic organisms isolated. Comment: Specimen Information Specimen Source: Abscess Specimen Site: ABDOMEN Specimen Performing Laboratory Abscess - Abdomen [facility] DEPARTMENT OF PATHOLOGY AND GENOMIC MEDICINE [address] [place] [address] Abd/Pelvic External Study (08/01/2017 9:12 AM)Only the most recent of2 resultswithin the time period is included. Specimen Performing Laboratory [facility] [address] [place] [address] Narrative This exam was not acquired at a [facility] facility and has not been interpreted by a [facility] Provider.The exam was imported into our imaging system for comparisons purposes. Estimated GFR (07/26/2017 4:30 AM)Only the most recent of15 resultswithin the time period is included. Component Value Ref Range GFR Non Af Amer 38 (A) mL/min/1.73 m2 GFR Af Amer 46 (A) mL/min/1.73 m2 Comment: Chronic kidney disease: <60 mL/min/1.73m2 Kidney failure: <15 mL/min/1.73m2 The estimated GFR is calculated from the IDMS-traceable Modification of Diet in Renal Disease Equation. The accuracy of the calculation is poor when the creatinine is normal. Calculated values >90 mL/min/1.73m2 are not reported. This equation has not been validated in children (<18 years), women, the elderly (>70 years), or ethnic groups other than Caucasians and Americans. Specimen Performing Laboratory Plasma specimen [facility] DEPARTMENT OF PATHOLOGY AND GENOMIC MEDICINE [address] [place] [address] CBC with platelet and differential (07/26/2017 4:30 AM)Only the most recent of12 resultswithin the time period is included. Component Value Ref Range WBC 15.24 (H) 4.50 - 11.00 k/uL RBC 3.54 (L) 4.40 - 6.00 m/uL HGB 10.0 (L) 14.0 - 18.0 g/dL HCT 32.3 (L) 41.0 - 51.0 % MCV 91.2 82.0 - 100.0 fL MCH 28.2 27.0 - 34.0 pg MCHC 31.0 31.0 - 37.0 g/dL RDW - SD 64.0 (H) 37.0 - 55.0 fL MPV 10.7 8.8 - 13.2 fL Platelet count 289 150 - 400 k/uL Nucleated RBC 0.00 /100 WBC Neutrophils 87.2 (H) 39.0 - 69.0 % Lymphocytes 3.9 (L) 25.0 - 45.0 % Monocytes 6.0 0.0 - 10.0 % Eosinophils 1.1 0.0 - 5.0 % Basophils 0.6 0.0 - 1.0 % Immature granulocytes 1.2 (H)Comment: "Immature granulocytes" 0.0 - 1.0 % (promyelocytes, myelocytes, metamyelocytes) Specimen Performing Laboratory Blood [facility] DEPARTMENT OF PATHOLOGY AND GENOMIC MEDICINE [address] [place] [address] Phosphorus level (07/26/2017 4:30 AM)Only the most recent of9 resultswithin the time period is included. Component Value Ref Range Phosphorus 3.4 2.4 - 4.5 mg/dL Specimen Performing Laboratory Plasma specimen [facility] DEPARTMENT OF PATHOLOGY AND [address] [address] Magnesium level (07/26/2017 4:30 AM)Only the most recent of9 resultswithin the time period is included. Component Value Ref Range Magnesium 2.3 1.6 - 2.4 mg/dL Specimen Performing Laboratory Plasma specimen [facility] DEPARTMENT OF PATHOLOGY AND [address] [address] Basic metabolic panel (07/26/2017 4:30 AM)Only the most recent of13 resultswithin the time period is included. Component Value Ref Range Sodium 133 (L) 135 - 148 mEq/L Potassium 3.9 3.5 - 5.0 mEq/L Chloride 95 (L) 98 - 112 mEq/L CO2 24 24 - 31 mEq/L Anion gap 14 7 - 15 mEq/L Comment: Starting from June , anion gap calculation no longer incorporates potassium. Please note the change. BUN 27 (H) 8 - 23 mg/dL Creatinine 1.8 (H) 0.7 - 1.2 mg/dL Glucose 94 65 - 99 mg/dL Calcium 8.0 (L) 8.8 - 10.2 mg/dL Specimen Performing Laboratory Plasma specimen [facility] DEPARTMENT OF PATHOLOGY AND GENOMIC MEDICINE [address] [place] [address] Pv duplex venous lower extremity (07/25/2017 2:11 PM) Specimen Performing Laboratory [facility] [address] [place] [address] Narrative Vascular Ultrasound Laboratory Lower Extremity Venous Report [address] [place] [address] Pat.Name:Frances NARVAEZ.ID:[id number] .Date: 07/25/2017Refer.MD:ROBIN WEBER MD Exam Time: 1:40:00 PMStudy Type:LE Venous Height:70inWeight: 221lb BSA: 2.18 m2 DOBAge:1955,61Y Sex: MALESonogrphr: Janes Mccormack RVT, MS Pat. Stat.:Inpatient Room:[address] TapeVol: , CPT - 4: 65867 Echo Event ID:[id number] Order ID:[id number] Reason for Study:Edema. PMH of COPD, CHF, CAD, FL, CABG. Procedures:Colorflow, Grayscale/2D, Power Doppler Imaging Race:C SUMMARY: DUPLEX SCAN OBSERVATIONS Deep VeinsSuperficial Veins RightLeft RightLeft EIV GSV (prox) Normal CFV Normal Normal (above knee) Femoral Normal GSV (dist)Normal Profunda Normal (below knee) Popliteal Normal PT (prox) NormalSSVNormal PT (dist) Normal Peroneal Normal RIGHT: There is normal compressibility with no evidence of echogenic material noted within the lumen of the visualized veins.Colorflow and Doppler signals are normal. LEFT:There is normal compressibility with no evidence of echogenic material noted within the lumen of the visualized veins.Colorflow and Doppler signals are normal. PRELIMINARY FINDINGS 1. Normal venous duplex exam of the visualized veins. PHYSICIAN INTERPRETATION 1. Venous examination of the left lower extremity and right groin demonstrates no evidence of venous thrombosis. Signed 07/25/2017 05:07 PM Allen Mercedes MD Procedure Note Interface, Radiology Results In - 07/25/2017 5:08 PM CDT Vascular Ultrasound Laboratory Lower Extremity Venous Report [id number] [address] Pat.Name: DYLLAN NARVAEZ.ID: [id number] St.Date: 07/25/2017 Refer.MD: ROBIN WEBER MD Exam Time: 1:40:00 PM Study Type:LE Venous Height: 70in Weight: 221lb BSA: 2.18 m2 Age: 4 1955,61Y Sex: MALE Sonogrphr: Janes Mccormack RVT, RDMS Pat. Stat.:Inpatient Room: M0972-H Tape Vol: SAURAV, CPT - 4: 20166 Echo Event ID:[id number] Order ID: [id number] Reason for Study:Edema. PMH of COPD, CHF, CAD, FL, CABG. Procedures:Colorflow, Grayscale/2D, Power Doppler Imaging Race: C SUMMARY: DUPLEX SCAN OBSERVATIONS Deep Veins Superficial Veins Right Left Right Left EIV GSV (prox) Normal CFV Normal Normal (above knee) Femoral Normal GSV (dist) Normal Profunda Normal (below knee) Popliteal Normal PT (prox) Normal SSV Normal PT (dist) Normal Peroneal Normal RIGHT: There is normal compressibility with no evidence of echogenic material noted within the lumen of the visualized veins.Colorflow and Doppler signals are normal. LEFT:There is normal compressibility with no evidence of echogenic material noted within the lumen of the visualized veins.Colorflow and Doppler signals are normal. PRELIMINARY FINDINGS 1. Normal venous duplex exam of the visualized veins. PHYSICIAN INTERPRETATION 1. Venous examination of the left lower extremity and right groin demonstrates no evidence of venous thrombosis. Signed 07/25/2017 05:07 PM Allen Mercedes MD Vancomycin level, trough (07/25/2017 8:55 AM)Only the most recent of3 resultswithin the time period is included. Component Value Ref Range Vancomycin, trough 19.7 10.0 - 20.0 ug/mL Comment: Therapeutic Ranges: Peak 30.0 - 40.0 ug/mL Wgkebu16.0 - 20.0 ug/mL Specimen Performing Laboratory Serum [facility] DEPARTMENT OF PATHOLOGY AND GENOMIC MEDICINE [address] [place] [address] Manual differential (07/19/2017 3:33 AM)Only the most recent of6 resultswithin the time period is included. Component Value Ref Range Manual differential PERFORMED Neutrophils 91.0 (H) 39.0 - 69.0 % Lymphocytes 2.0 (L) 25.0 - 45.0 % Monocytes 7.0 0.0 - 10.0 % Eosinophils 0.0 0.0 - 5.0 % Basophils 0.0 0.0 - 1.0 % Metamyelocytes 0 % Promyelocytes 0 % Platelet slide review Godwin slt decr Specimen Performing Laboratory [facility] DEPARTMENT OF PATHOLOGY AND [facility] MEDICINE [address] [place] [address] Comprehensive metabolic panel (07/19/2017 3:33 AM)Only the most recent of2 resultswithin the time period is included. Component Value Ref Range Sodium 131 (L) 135 - 148 mEq/L Potassium 3.4 (L) 3.5 - 5.0 mEq/L Chloride 92 (L) 98 - 112 mEq/L CO2 23 (L) 24 - 31 mEq/L Anion gap 16 (H) 7 - 15 mEq/L Comment: Starting from June , anion gap calculation no longer incorporates potassium. Please note the change. BUN 47 (H) 8 - 23 mg/dL Creatinine 2.1 (H) 0.7 - 1.2 mg/dL Glucose 131 (H) 65 - 99 mg/dL Calcium 7.4 (L) 8.8 - 10.2 mg/dL Protein 5.5 (L) 6.3 - 8.3 g/dL Comment: 4.6-7.0 g/dL 1 week 4.4-7.6 g/dL 7 months-1year5.1-7.3 g/dL 1-2 years5.6-7.5 g/dL >3 years6.0-8.0 g/dL 18-150 6.3-8.3 g/dL Albumin 1.5 (L) 3.5 - 5.0 g/dL A/G ratio 0.4 (L) 0.7 - 3.8 Alkaline phosphatase 137 (H) 40 - 129 U/L AST 63 (H) 10 - 50 U/L ALT 18 5 - 50 U/L Total bilirubin 2.7 (H) 0.0 - 1.2 mg/dL Specimen Performing Laboratory Plasma specimen [facility] [place]MENT [place] [address] Blood culture, aerobic & anaerobic (07/14/2017 6:50 AM)Only the most recent of2 resultswithin the time period is included. Component Value Ref Range Blood culture isolate No growth after 5 days of incubation. Comment: Specimen Information Specimen Source: Blood Specimen Site: Peripheral Hand Right Specimen Performing Laboratory Blood [facility] DEPARTMENT OF PATHOLOGY AND [address] [address] Potassium level (07/13/2017 2:00 PM) Component Value Ref Range Potassium 4.6 3.5 - 5.0 mEq/L Specimen Performing Laboratory Plasma specimen [facility] DEPARTMENT OF PATHOLOGY AND [address] [address] [address] Abdomen Pelvis Wo Contrast (07/13/2017 12:55 PM) Specimen Performing Laboratory [address] [address] Narrative EXAMINATION:CT ABDOMEN PELVIS WO CONTRAST CLINICAL HISTORY:DIVERTICULITIS TECHNIQUE:Multiple axial images of the abdomen and pelvis were obtained without intravenous administration of iodinated contrast. Sagittal and coronal computerized reformatted images were also obtained. The lack of intravenous contrast reduces the sensitivity of detecting solid organ disease. CT imaging was performed with iterative reconstruction techniques and/or automated exposure control to reduce radiation dose. COMPARISON:To an outside study from 07/11/2017 IMPRESSION: Inflammatory changes involving a limb of small bowel in the right lower quadrant. Inflammatory bowel disease cannot be excluded. Abdomen: 1. Consolidation and atelectatic changes, most marked in the right lower lobe are increasing. 2.Very small amount of ascitic fluid is noted around the liver. A focal mass in the liver is not identified. The spleen is not enlarged. 3.Gallstones are noted within the gallbladder which is collapsed, without evidence of biliary ductal dilatation. 4.The pancreas is normal in appearance. A 15 mm low-density involving the posterior limb of the gland is noted, consistent with an adrenal adenoma. The left adrenal gland is normal in appearance. 5.Both kidneys are small, without evidence of hydronephrosis. 6.There are at least 4 separate ventral hernias noted above and at the level of the umbilicus. There are 2 separate Alonzo-type hernias with the antimesenteric border of the small portion of transverse colon noted. No bowel distention is appreciated. Pelvis: 1. There is high density fluid noted in the anterior pelvis, appearing since the outside examination. This is in association with a thickened, partially collapsed loop of small bowel in the right lower quadrant (series 2 image 144). 2.There is very minor pericolonic stranding noted (series 2, image 149) at the junction of the descending colon and sigmoid colon clear evidence of diverticulitis is not appreciated. 3. Bilateral inguinal hernias are present, with a small amount of fluid present in the left inguinal hernia and extensive infiltration in the subcutaneous fat especially on the left side, all new since the previous examination. No bowel is present within the inguinal hernias. 4.No bowel distention is appreciated. Is no evidence of pelvic mass. 5.No bony destructive lesions are appreciated. [id number] Procedure Note Hm Interface, Radiology Results Incoming - 07/13/2017 1:11 PM CDT EXAMINATION: CT ABDOMEN PELVIS WO CONTRAST CLINICAL HISTORY: DIVERTICULITIS TECHNIQUE: Multiple axial images of the abdomen and pelvis were obtained without intravenous administration of iodinated contrast. Sagittal and coronal computerized reformatted images were also obtained. The lack of intravenous contrast reduces the sensitivity of detecting solid organ disease. CT imaging was performed with iterative reconstruction techniques and/or automated exposure control to reduce radiation dose. COMPARISON: To an outside study from 07/11/2017 IMPRESSION: Inflammatory changes involving a limb of small bowel in the right lower quadrant. Inflammatory bowel disease cannot be excluded. Abdomen: 1. Consolidation and atelectatic changes, most marked in the right lower lobe are increasing. 2. Very small amount of ascitic fluid is noted around the liver. A focal mass in the liver is not identified. The spleen is not enlarged. 3. Gallstones are noted within the gallbladder which is collapsed, without evidence of biliary ductal dilatation. 4. The pancreas is normal in appearance. A 15 mm low-density involving the posterior limb of the gland is noted, consistent with an adrenal adenoma. The left adrenal gland is normal in appearance. 5. Both kidneys are small, without evidence of hydronephrosis. 6. There are at least 4 separate ventral hernias noted above and at the level of the umbilicus. There are 2 separate Alonzo-type hernias with the antimesenteric border of the small portion of transverse colon noted. No bowel distention is appreciated. Pelvis: 1. There is high density fluid noted in the anterior pelvis, appearing since the outside examination. This is in association with a thickened, partially collapsed loop of small bowel in the right lower quadrant (series 2 image 144). 2. There is very minor pericolonic stranding noted (series 2, image 149) at the junction of the descending colon and sigmoid colon clear evidence of diverticulitis is not appreciated. 3. Bilateral inguinal hernias are present, with a small amount of fluid present in the left inguinal hernia and extensive infiltration in the subcutaneous fat especially on the left side, all new since the previous examination. No bowel is present within the inguinal hernias. 4. No bowel distention is appreciated. Is no evidence of pelvic mass. 5. No bony destructive lesions are appreciated. [id number] Lactic acid level (07/13/2017 7:43 AM) Component Value Ref Range Lactic acid 1.7 0.5 - 2.2 mmol/L Specimen Performing Laboratory Blood [facility] DEPARTMENT OF PATHOLOGY AND GENOMIC MEDICINE [address] [place] [id number] Urinalysis screen and microscopy, with reflex to culture (07/12/2017 2:00 PM) Component Value Ref Range Specimen site Clean catch Color, UA Dark Yellow Appearance, UA Hazy Specific gravity, UA 1.021 1.001 - 1.035 pH, UA 5.0 5.0 - 8.5 Protein, UA Negative Negative Glucose, UA Negative Negative Ketones, UA Trace (A) Negative Bilirubin, UA Negative Negative Blood, UA Small (A) Negative Nitrite, UA Negative Negative Urobilinogen, UA <2.0 <2.0 Leukocyte esterase, UA Negative Negative Epithelial cells, UA <1 /HPF WBC, UA 2 (H) 0 - 1 /HPF RBC, UA 2 0 - 5 /HPF Bacteria, UA Few None seen Yeast, UA None seen Yeast with pseudohyphae, UA None seen Specimen Performing Laboratory Urine [facility] DEPARTMENT OF PATHOLOGY AND GENOMIC MEDICINE [address] [place] [address] Urine culture (07/12/2017 2:00 PM) Component Value Ref Range Urine culture SEE COMMENTComment: Bacteriuria screen negative. Specimen Performing Laboratory [facility] DEPARTMENT OF PATHOLOGY AND GENOMIC MEDICINE [address] [place] [address] Echocardiogram complete w contrast and 3D if needed (07/12/2017 11:16 AM) Specimen Performing Laboratory [facility] [address] [place] [address] Narrative Echocardiography Report [address] [place] [address] [address] [address] Pat.Name:Frances NARVAEZ.ID:[id number] .Date: 07/12/2017 Refer.MD:CHAYO GASTON MD Exam Time: 10:24:00 AM Study Type:Routine Echo Height:71inWeight: 197lb BSA: 2.1 h9FPOBpv:1955,61Y Sex: MALEBP:90/47 HR:71 bpmSonogrphr: Toño Gaston RDCS Pat. Stat.:Inpatient Room:[address] Study Status:Final Echo Event ID:[id number] Order ID:[id number] Reason for Study:HF History / Clinical:Chest pain, Coronary artery disease, Hypertension Procedures:2D Echo, Colorflow Doppler, Intravenous Definity Contrast Race:C SUMMARY: LV size is severely enlarged. LV EF is severely depressed. RV size is moderately enlarged. RV systolic function is moderately depressed. Diastolic dysfunction Grade II (Moderate): Impaired relaxation with elevated LV filling pressures. Severe pulmonary hypertension. FINDINGS: LV: LV size is severely enlarged. LV EF is severely depressed. Globalhypokinesis. Estimated EF is <20%. RV: RV size is moderately enlarged. RV systolic function is moderatelydepressed. LA: LA volume is severely enlarged. RA: RA size is normal. AO: Aortic root diameter is normal. LEONA: No pericardial effusion. AV: No structural AV abnormalities noted. MV: No structural MV abnormalities noted. A trace of mitral regurgitation. PV: No structural PV abnormalities noted. TV: No structural TV abnormalities noted. Avalos: Diastolic dysfunction Grade II (Moderate): Impaired relaxationwith elevated LV filling pressures. Other:Suboptimal/insufficient TR jet. Estimated PA systolic pressureis at least 70 mmHg, assuming a mean RAP of 10 mmHg. MEASUREMENTS: 2D Parasternal [place] LA Ds4.4 cmLVPWd1 cm LVOT 2 cmAo An2.4 cm LVIDd7 cmIndex3.4 cm/m Ao Rtd 3.2 cm Index1.5 cm/m LVIDs6.6 cm LV Jube613.8 g(122-174) LV%fs6.8 % LVM Pveqm770.8 g/m2 IVSd 0.6 cmRWT0.3 LA Sng Plane LA Area 26.2 cm2(8.8-23.4) LA Vol95.7 ml Index45.6 ml/m LA LngAx 5.8 cm DOPPLER LVOT Stroke Vol LVOT 2 cmLVOT CO3.8 l/min LVOT TVI16 cmLVOT CI1.8 l/m/m2 LVOT Tm272 qqhzKV58 bpm LVOT SV 50.3 ml Signed 07/12/2017 03:46 PM Rayray Guaman M.D. Procedure Note Interface, Radiology Results In - 07/12/2017 3:46 PM CDT Echocardiography Report [id number] [address] [facility].Name: DYLLAN NARVAEZ.ID: [id number] .Date: 07/12/2017 Refer.MD: CHAYO GASTON MD Exam Time: 10:24:00 AM Study Type:Routine Echo Height: 71in Weight: 197lb BSA: 2.1 m2 Age: 4 1955,61Y Sex: MALE BP: 90/47 HR: 71 bpm Sonogrphr: Toño Gaston RDCS Pat. Stat.:Inpatient Room: [facility] 438X Study Status:Final Echo Event ID:[id number] Order ID: [id number] Reason for Study:HF History / Clinical:Chest pain, Coronary artery disease, Hypertension Procedures:2D Echo, Colorflow Doppler, Intravenous Definity Contrast Race: C SUMMARY: LV size is severely enlarged. LV EF is severely depressed. RV size is moderately enlarged. RV systolic function is moderately depressed. Diastolic dysfunction Grade II (Moderate): Impaired relaxation with elevated LV filling pressures. Severe pulmonary hypertension. FINDINGS: LV: LV size is severely enlarged. LV EF is severely depressed. Global hypokinesis. Estimated EF is <20%. RV: RV size is moderately enlarged. RV systolic function is moderately depressed. LA: LA volume is severely enlarged. RA: RA size is normal. AO: Aortic root diameter is normal. LEONA: No pericardial effusion. AV: No structural AV abnormalities noted. MV: No structural MV abnormalities noted. A trace of mitral regurgitation. PV: No structural PV abnormalities noted. TV: No structural TV abnormalities noted. Avalos: Diastolic dysfunction Grade II (Moderate): Impaired relaxation with elevated LV filling pressures. Other: Suboptimal/insufficient TR jet. Estimated PA systolic pressure is at least 70 mmHg, assuming a mean RAP of 10 mmHg. MEASUREMENTS: 2D Parasternal [place] LA Ds 4.4 cm LVPWd 1 cm LVOT 2 cm Ao An 2.4 cm LVIDd 7 cm Index 3.4 cm/m Ao Rtd 3.2 cm Index 1.5 cm/m LVIDs 6.6 cm LV Mass 255.8 g (122-174) LV%fs 6.8 % LVM Index 121.8 g/m2 IVSd 0.6 cm RWT 0.3 LA Sng Plane LA Area 26.2 cm2 (8.8-23.4) LA Vol 95.7 ml Index 45.6 ml/m LA LngAx 5.8 cm DOPPLER LVOT Stroke Vol LVOT 2 cm LVOT CO 3.8 l/min LVOT TVI 16 cm LVOT CI 1.8 l/m/m2 LVOT Tm 272 msec HR 76 bpm LVOT SV 50.3 ml Signed 07/12/2017 03:46 PM Rayray Guaman M.D. B natriuretic peptide (07/12/2017 10:04 AM) Component Value Ref Range BNP 4,264 (H) 0 - 100 pg/mL Specimen Performing Laboratory Blood [facility] DEPARTMENT OF PATHOLOGY AND GENOMIC MEDICINE [address] [place] [address] XR Abdomen Acute Inc Chest (07/12/2017 7:56 AM) Specimen Performing Laboratory [facility] [address] [place] [address] Narrative Study:XR ABDOMEN ACUTE INC CHEST History: ABDOMINAL PAIN, rales on lung auscultation COMPARISON: None. IMPRESSION: A single view of the chest. 2 views of the abdomen.Atelectasis of the left lung base. Faint streaky airspace opacity along the right lung base with some volume loss probably atelectasis. A large pleural effusions. No pneumothorax. Stable calcified mediastinal and right hilar lymph nodes. Left chest device has its lead overlying the middle mediastinum.Cardiac silhouette is stable.Visualized osseous structures arestable. No bowel distention or free air. Moderate amount also present within the colon. There are some objective changes of the lumbar spine. [id number] Procedure Note Interface, Radiology Results Incoming - 07/12/2017 8:09 AM CDT Study:XR ABDOMEN ACUTE INC CHEST History: ABDOMINAL PAIN, rales on lung auscultation COMPARISON: None. IMPRESSION: A single view of the chest. 2 views of the abdomen. Atelectasis of the left lung base. Faint streaky airspace opacity along the right lung base with some volume loss probably atelectasis. A large pleural effusions. No pneumothorax. Stable calcified mediastinal and right hilar lymph nodes. Left chest device has its lead overlying the middle mediastinum. Cardiac silhouette is stable. Visualized osseous structures are stable. No bowel distention or free air. Moderate amount also present within the colon. There are some objective changes of the lumbar spine. [id number] Urine eosinophils (07/12/2017 5:30 AM) Component Value Ref Range Eosinophils, urine NONE Specimen Performing Laboratory Urine [facility] DEPARTMENT OF PATHOLOGY AND GENOMIC MEDICINE [address] [place] [address] Urea nitrogen, urine, random (07/12/2017 5:30 AM) Component Value Ref Range Urea nitrogen, urine, random 324 mg/dL Specimen Performing Laboratory Urine [facility] DEPARTMENT OF PATHOLOGY AND GENOMIC MEDICINE [address] [place] [address] Sodium level, urine, random (07/12/2017 5:30 AM) Component Value Ref Range Sodium, urine, random 52 mEq/L Specimen Performing Laboratory Urine [facility] DEPARTMENT OF PATHOLOGY AND [facility] MEDICINE [address] [place] [address] Protein, urine, random (07/12/2017 5:30 AM) Component Value Ref Range Protein, urine random 19 mg/dL Specimen Performing Laboratory Urine [facility] DEPARTMENT OF PATHOLOGY AND [facility] MEDICINE [address] [place] [address] Creatinine level, urine, random (07/12/2017 5:30 AM) Component Value Ref Range Creatinine, urine, random 167 mg/dL Specimen Performing Laboratory Urine [facility] DEPARTMENT OF PATHOLOGY AND [facility] MEDICINE [address] [place] [address] Chloride level, urine, random (07/12/2017 5:30 AM) Component Value Ref Range Chloride, urine, random 48 mEq/L Specimen Performing Laboratory Urine [facility] DEPARTMENT OF PATHOLOGY AND GENOMIC MEDICINE [address] [place] [address] ECG 12 lead (07/12/2017 5:05 AM) Component Value Ref Range Ventricular rate 80 Atrial rate 80 VA interval 186 QRSD interval 118 QT interval 408 QTC interval 470 P axis 1 70 QRS axis 1 91 T wave axis 69 EKG impression Normal sinus rhythm-Possible Lateral infarct , age undetermined-Abnormal ECG-No previous ECGs available- Specimen Performing Laboratory [facility] M[facility] [address] [place] [address] Partial thromboplastin time, activated (07/11/2017 11:00 PM) Component Value Ref Range PTT 29.1 23.0 - 36.0 sec Comment: PTT therapeutic range for unfractionated heparin is 61.0-112.0 seconds which corresponds to Anti-Xa 0.3-0.7 U/ml. Specimen Performing Laboratory Blood [facility] DEPARTMENT OF PATHOLOGY AND GENOMIC MEDICINE [address] [place] [address] Prothrombin time with INR (07/11/2017 11:00 PM) Component Value Ref Range Prothrombin time 16.8 (H) 12.0 - 15.0 sec INR 1.3 Comment: The International Normalized Ratio (INR) is a therapeutic monitoring tool for patients who are stable on oral anticoagulant therapy. An INR of 2.0-3.0 is suggested for deep vein thrombosis/pulmonary embolism. Specimen Performing Laboratory Blood [facility] DEPARTMENT OF PATHOLOGY AND GENOMIC MEDICINE [address] [place] [address] after 08/31/2016 Insurance Payer Benefit Plan / Group Subscriber ID Type Phone Address MEDICARE MEDICARE PART A AND B xxxxxxxxxx Medicare [place], [place] xxxxxxxxx [place] Home: [address] [place], [place] [phone] [address] DYLLAN NARVAEZ Neyda Other [address] [place] [id number]
[2017-09-01] MEDS ORDERED: NA CHLORIDE 0.9% 1,000 ML ONE (16:37)
[2017-09-01 16:44] LABS: Urine Blood NEGATIVE (NEG); Urine Glucose NEGATIVE (NEG); Urine Protein NEGATIVE (NEG)
[2017-09-01 16:44] LABS: Protime INR 1.54
[2017-09-01 16:56] LABS: Urine Bacteria <20 /HPF (NONE SEEN); Urine RBC <5 /HPF (NONE SEEN)
[2017-09-01 16:57] LABS: Urine Amorphous Sediment 2+ /HPF (NONE SEEN); Urine Culture Reflex Order NOT NEEDED; Urine Mucus SLIGHT /HPF (NONE SEEN)
--- NOTE | 2017-09-01 16:58 | RAD REPORT ---
EXAM DESCRIPTION: RAD - Chest Single View - 09/01/2017 4:48 pm CLINICAL HISTORY: Chest pain, SOB. COMPARISON: 11/03/2014 FINDINGS: Portable technique limits examination quality. Mild interstitial pulmonary edema is seen. Small left pleural effusion likely present. The heart is m ildly enlarged in size. Crescentic lucency is seen underneath the right hemidiaphragm.Right-sided genet ous catheter tip in the SVC. IMPRESSION: Mild CHF/ volume overload pattern. Crescentic lucency beneath the right hemidiaphragm could indicate pneumoperitoneum. CT of the abdomen would be advised for followup. Findings were discussed with Dr. Yadav in the emergency room 4:55 p.m. 09/01/2017 by telephone.
[2017-09-01 17:07] LABS: Absolute Lymphocytes (CBC) 0.3 K/uL (0.7-4.9); Absolute Monocytes 0.5 K/uL (0.1-1.3); Absolute Neutrophil 8.6 K/uL (1.8-8.0); Basophils % 0.1 % (0-1.3); Eosinophils % 0.1 % (0-4.4); Hematocrit 25.9 % (39.6-49.0); Lymphocytes % 3.3 % (15.3-44.8); MCH 30.1 pg (27.0-35.0); MPV 10.2 fL (7.6-11.3); Monocytes % 5.5 % (3.3-12.3); RBC Red Blood Cell Count 2.85 M/uL (4.33-5.43)
[2017-09-01 17:12] LABS: Albumin 2.2 g/dL (3.2-5.5); Bilirubin Direct 0.7 mg/dL (0-0.2); Bilirubin Total 1.1 mg/dL (0.3-1.2); CKMB Creatine Kinase MB 3.6 ng/ml (0.3-4.0)
--- NOTE | 2017-09-01 17:59 | RAD REPORT ---
EXAM DESCRIPTION: CT - Abdomen Pelvis Wo Contrast - 09/01/2017 5:47 pm CLINICAL HISTORY: Abdominal pain. ABDOMINAL DISTENTION COMPARISON: Abdomen Pelvis Wo Contrast dated 07/11/2017 TECHNIQUE: CT imaging of the abdomen and pelvis was performed without contrast. Solid organ, bowel a nd vascular assessment is limited due to lack of IV and oral contrast. All CT scans are performed using dose optimization technique as appropriate and may include automated exposure control or mA/KV adjustment according to patient size. FINDINGS: Small bilateral pleural effusions with atelectasis both lung bases. Moderate pneumoperitoneum is noted, greatest inferior to the right hemidiaphragm, where air-fluid lev els are noted. Additional areas of pneumoperitoneum are seen in the upper abdomen anteriorly. Anterio rly and pigtail catheter is seen entering the abdomen coiled anterior to the left lobe liver. A small amount of fluid is seen in this region. Mild free fluid is seen around the liver. No aggressive liver lesion or biliary dilatation. The splee n, pancreas, left adrenal gland are normal. Right adrenal gland contains a 13 mm nodule. The kidneys show no stone or hydronephrosis. A bowel obstruction is not seen. Moderate fat containing ventral hernia is seen. Several additional s mall ventral hernias are present more inferiorly. A Vogel catheter decompresses the bladder.No fracture or aggressive marrow process. Small fat contain ing inguinal hernias bilaterally. IMPRESSION: Moderate pneumoperitoneum is present as detailed. Per provided history, the patient has a history of untreated colonic perforation which would explain this finding. A pigtail drain is in pl geoffrey in the anterior abdomen with a small amount of fluid noted adjacent to the pigtail. Air fluid levels are seen superimposed between the right hemidiaphragmatic leaflet in the superior ma rgin of the liver which may indicate loculated abscess formation in this region. Another possibility would be that this represents loculated intraperitoneal air and noninfected fluid collections. Clinic al/laboratory correlation is suggested. A limited non-contrast examination was performed as detailed.
[2017-09-01] MEDS ORDERED: D50W 25 GM/50 ML SYRINGE IV ONE (18:19)
[2017-09-01] MEDS ORDERED: Levofloxacin500mg IV 500 MG/100 ML BAG IV ONE (18:19)
[2017-09-01] MEDS ORDERED: NA CHLORIDE 0.9% 2,000 ML ONE (18:19)
[2017-09-01] MEDS ORDERED: ALBUTEROL 2.5 MG/3 ML NEB SOL ONE (18:19)
[2017-09-01] MEDS ORDERED: SOD POLYSTYREN SUL 15 GM/60 ML UCUP ONE (18:19)
[2017-09-01] MEDS ORDERED: INSULIN -REGULAR HUMAN 50 UNIT/0.5 ML ML ONE (18:19)
[2017-09-01] MEDS ORDERED: PIPER/TAZO/NS 3.375gm 3.375 GM/100 ML BAG IV ONE (18:45)
[2017-09-01] MEDS ORDERED: VANCOMYCIN/NS 1 gm 1 GM/250 ML BAG IV ONE (19:00)
[2017-09-01] MEDS ORDERED: ONDANSETRON 4 MG/2 ML VIAL ONE (19:31)
[2017-09-01 20:35] LABS: Anisocytosis 1+; Blood Morphology Comment NOTED (NOT SEEN); Platelet Estimate ADEQ; Polychromasia 1+; Urine White Blood Cell Casts OK
[2017-09-01] MEDS ORDERED: NOREPINEPHRINE 4mg/D5W 250mL 4 MG/250 ML BAG IV ONE (21:14)
[2017-09-01 21:20] LABS: Potassium 4.9 mEq/L (3.6-5.0)
--- NOTE | 2017-09-01 21:24 | ER ---
Nurse's Notes [facility] Name: Dyllan Narvaez Age: 62 yrs Sex: Male : 1955 Arrival Date: 09/01/2017 Time: 15:20 Bed 4 Private MD: Ghanshyam Benavides T Diagnosis: Other sepsis;Hypotension;Pneumoperitoneum;End stage renal disease;Unspecified combined systolic (congestive) and diastolic (congestive) heart failure Presentation: 09/01 15:25 Presenting complaint: Presenting complaint: Pt's states "he was [facility] for a aa5 perforated colon but they decided not to do surgery because his lungs and heart are not strong enough". Pt's states "his legs are swollen and he is not urinating that much, he's only had 200 cc of urine today". Transition of care: patient was not received from another setting of care. Onset of symptoms was 2017. Risk Assessment: Do you want to hurt yourself or someone else? Patient reports no desire to harm self or others. Care prior to arrival: None. 15:25 Method Of Arrival: Wheelchair aa5 15:25 Acuity: HAYLEY 2 aa5 15:25 Initial Sepsis Screen: Does the patient meet any 2 criteria? Systolic BP < 90 mmHg. aa5 Does the patient have a suspected source of infection? No. Patient's initial sepsis screen is negative. Historical: - Allergies: 15:30 Oxycodone; aa5 15:30 Keflex; aa5 - PMHx: 15:30 TIA; COPD; CHF; Atrial Fib; Perforated colon; aa5 - PSHx: 15:30 CABG; BKA; Heart stents; aa5 - Immunization history:: Pneumococcal vaccine is not up to date. - Social history:: Smoking status: Patient/guardian denies using tobacco. - Ebola Screening: : No symptoms or risks identified at this time. Screenin:45 Abuse screen: Denies threats or abuse. Denies injuries from another. Nutritional aj1 screening: No deficits noted. Tuberculosis screening: No symptoms or risk factors identified. 21:23 Fall Risk IV access (20 points). Ambulatory Aid- None/Bed Rest/Nurse Assist (0 pts). jd3 Gait- Normal/Bed Rest/Wheelchair (0 pts) Mental Status- Oriented to own ability (0 pts). Total Escobar Fall Scale indicates No Risk (0-24 pts). Assessment: 15:45 General: Appears in no apparent distress. uncomfortable, Behavior is cooperative, aj1 drowsy. Pain: Denies pain. Neuro: Level of Consciousness is awake, obeys commands, listless, Oriented to person, place, time, situation, Speech is normal, Facial symmetry appears normal, Reports weakness fatigue. Cardiovascular: Denies chest pain, palpitations, shortness of breath, Heart tones S1 S2 present Patient's skin is warm and dry. pacemaker present, venous access present to right upper chest. Patient's states that it is an accessed portacath and the PICC line in sewn into place accessing it. Occlusive dressing covering access site dry and intact. Patient has TPN from home infusing to this site, states that this bag is scheduled to infuse until 0800 tomorrow morning. Rhythm is regular Chest pain is denied. Respiratory: Airway is patent Respiratory effort is even, unlabored, Respiratory pattern is regular, symmetrical, Breath sounds with rales in left posterior lower lobe and right posterior lower lobe. GI: Abdomen is round distended, Patient has a drainage tube to center of abdomen. Patient's states that he has a perforated bowel that they were unable to repair, because he would not be able to withstand surgery. The tube is to drain the abdomen Stools are reported to be small, last BM yesterday. Patient's states they were told his BMs would get smaller and smaller until he stopped having them completely.. Bowel sounds absent in right lower quadrant and left lower quadrant hyperactive in right upper quadrant and left upper quadrant. : Reports inability to void, since 0800 this am. states that he was only able to urinate 200cc at that time. EENT: No signs and/or symptoms were reported regarding the EENT system. Derm: Skin is pale, Skin temperature is cool. Musculoskeletal: Amputation of right BKA, left toes. 16:45 Reassessment: Patient appears in no apparent distress at this time. No changes from aj1 previously documented assessment. Patient and/or family updated on plan of care and expected duration. Pain level reassessed. Patient is alert, oriented x 3, equal unlabored respirations, skin warm/dry/pink. 17:35 Reassessment: Transported patient to CT via stretcher, accompanied by me. aj1 17:59 Reassessment: Patient returned to room. aj1 18:02 Reassessment: Patient and/or family updated on plan of care and expected duration. Pain aj1 level reassessed. General: Appears in no apparent distress. uncomfortable, Behavior is calm, cooperative. Pain: Denies pain. Neuro: Level of Consciousness is awake, alert, obeys commands, Speech is normal, Facial symmetry appears normal. Cardiovascular: Patient's skin is warm and dry. Rhythm is regular Chest pain is denied. Respiratory: Airway is patent Respiratory effort is even, unlabored, Respiratory pattern is regular, symmetrical, Breath sounds with rales in left posterior lower lobe and right posterior lower lobe. GI: Abdomen is round distended. : Vogel in place to gravity drainage. Derm: Skin is pale. 18:15 Reassessment: Patient and his instructed on medications, we are giving fluids as aj1 part of sepsis protocol. Notify staff immediately if shortness of breath occurs, or with any questions or concerns. 19:00 General: Appears in no apparent distress. uncomfortable, Behavior is calm, cooperative. aj1 Pain: Denies pain. Neuro: Level of Consciousness is awake, alert, obeys commands, Speech is normal, Facial symmetry appears normal. Cardiovascular: Heart tones S1 S2 present Rhythm is regular. Respiratory: Airway is patent Respiratory effort is even, unlabored, Respiratory pattern is regular, symmetrical, Breath sounds with rales in left posterior lower lobe and right posterior lower lobe. GI: Abdomen is round distended, Abd is non tender X 4 quads Abd is rigid X 4 quads. : Vogel in place to gravity drainage. Derm: Skin is pale, Skin temperature is cool. 19:45 Reassessment: Started 2nd dose of albuterol. Patient began dry heaving. States that aj1 albuterol always makes him nauseated. Offered to see if we could get him another dose of nausea medication. Patient refuses. States that he will not take anymore albuterol. Notified DEBRA Juárez. 20:00 Reassessment: Patient and/or family updated on plan of care and expected duration. Pain aj1 level reassessed. General: Appears in no apparent distress. uncomfortable, Behavior is calm, cooperative. Pain: Complains of pain in back Pain does not radiate. Pain currently is 3 out of 10 on a pain scale. Quality of pain is described as aching. Neuro: Level of Consciousness is awake, alert, Speech is normal, Facial symmetry appears normal. Cardiovascular: Rhythm is regular. Respiratory: Airway is patent Respiratory effort is even, unlabored, Respiratory pattern is regular, symmetrical, Breath sounds with rales in left posterior lower lobe and right posterior lower lobe. GI: Abdomen is round distended. Derm: Skin is pale, Skin temperature is cool. 20:20 Reassessment: Bolus infusion discontinued per verbal orders from Dr. Shelby. Patient aj1 denies SOB at this time, no distress noted. Patient states that the stretcher is uncomfortable and making his back hurt Patient's is at bedside. 20:35 Reassessment: Patient moved to Trauma 4, bedside report given to EVE Mcarthur. aj1 20:55 Reassessment: Patient and/or family updated on plan of care and expected duration. Pain jd3 level reassessed. Patient is alert, oriented x 3, equal unlabored respirations, skin warm/dry/pink. provider notified of low blood pressure, no new orders at this time. 20:55 General: Appears uncomfortable, Behavior is calm, cooperative. Pain: Denies pain. jd3 Neuro: Level of Consciousness is awake, alert, obeys commands, Oriented to person, place, time, situation, Speech is normal, Facial symmetry appears normal, Reports weakness. Cardiovascular: Denies chest pain, palpitations, shortness of breath, Heart tones S1 S2 present Patient's skin is warm and dry. Rhythm is regular Chest pain is denied. Respiratory: Airway is patent Respiratory effort is even, unlabored, Respiratory pattern is regular, symmetrical, Breath sounds with rales in left posterior lower lobe and right posterior lower lobe. GI: Abdomen is round distended, drainage tube to middle of abdomen Abd is non tender X 4 quads Abd is rigid X 4 quads. : Vogel in place to gravity drainage. EENT: No signs and/or symptoms were reported regarding the EENT system. Derm: Skin is intact, Skin is dry, Skin is pale, Skin temperature is cool. Musculoskeletal: Amputation of right BKA and left toes. 21:22 Reassessment: Patient and/or family updated on plan of care and expected duration. Pain jd3 level reassessed. Patient is alert, oriented x 3, equal unlabored respirations, skin warm/dry/pink. provider provider on the phone with accepting physician to get the pt transferred to [facility]. family updated. provider ordered to hold Levophed. 22:08 Reassessment: Patient and/or family updated on plan of care and expected duration. Pain jd3 level reassessed. Patient is alert, oriented x 3, equal unlabored respirations, skin warm/dry/pink. report given to Lalit PRADO at [facility]. family updated on time of EMS arrival. 22:30 Reassessment: Patient appears in no apparent distress at this time. Patient and/or jd3 family updated on plan of care and expected duration. Pain level reassessed. Patient is alert, oriented x 3, equal unlabored respirations, skin warm/dry/pink. 23:20 Reassessment: Patient appears in no apparent distress at this time. Patient and/or jd3 family updated on plan of care and expected duration. Pain level reassessed. Patient is alert, oriented x 3, equal unlabored respirations, skin warm/dry/pink. 23:55 Reassessment: Patient appears in no apparent distress at this time. Patient and/or jd3 family updated on plan of care and expected duration. Pain level reassessed. Patient is alert, oriented x 3, equal unlabored respirations, skin warm/dry/pink. report given to EMS. Vital Signs: 15:30 BP 80 / 47; Pulse 58; Resp 16 S; Temp 97.3(TE); Pulse Ox 90% on R/A; Weight 89.81 kg aa5 (R); Height 5 ft. 11 in. (180.34 cm) (R); Pain 0/10; 15:34 BP 82 / 46; aa5 15:45 BP 88 / 48; Pulse 59; Resp 22; Pulse Ox 96% on NC; aj1 16:00 BP 84 / 35; Pulse 59; Resp 22; Pulse Ox 96% on NC; aj1 16:15 BP 92 / 46; Pulse 60; Resp 24; Pulse Ox 98% on NC; aj1 16:30 BP 90 / 48; Pulse 59; Resp 20; Pulse Ox 99% on NC; aj1 16:45 BP 82 / 41; Pulse 60; Resp 20; Pulse Ox 97% on NC; aj1 17:02 BP 91 / 52; Pulse 61; Resp 24; Pulse Ox 96% on NC; aj1 17:15 BP 93 / 57; Pulse 60; Resp 22; Pulse Ox 95% on 3 lpm NC; aj1 17:30 BP 90 / 52; Pulse 61; Resp 24; Pulse Ox 95% on NC; aj1 18:00 BP 93 / 53; Pulse 61; Resp 22; Pulse Ox 98% on 3 lpm NC; aj1 18:15 BP 91 / 58; Pulse 60; Resp 24; Pulse Ox 98% on NC; aj1 18:30 BP 90 / 52; Pulse 64; Resp 22; Pulse Ox 94% on NC; aj1 18:45 BP 105 / 59; Pulse 60; Resp 26; Pulse Ox 94% on NC; aj1 19:00 BP 96 / 48; Pulse 60; Resp 24; Pulse Ox 94% on NC; aj1 19:15 BP 88 / 52; Pulse 64; Resp 24; Pulse Ox 93% on NC; aj1 19:30 BP 94 / 47; Pulse 61; Resp 26; Pulse Ox 94% on NC; aj1 19:45 BP 83 / 55; Pulse 62; Resp 20; Pulse Ox 94% on R/A; aj1 20:00 BP 100 / 52; Pulse 62; Resp 26; Pulse Ox 93% on R/A; aj1 20:15 BP 91 / 62; Pulse 62; Resp 24; Pulse Ox 93% on NC; aj1 20:55 BP 84 / 51; Pulse 64; Resp 24 S; Pulse Ox 93% on 3 lpm NC; jd3 21:21 BP 99 / 50; Pulse 63; Resp 23 S; Pulse Ox 97% on 3 lpm NC; Pain 0/10; jd3 22:10 BP 100 / 49; Pulse 62; Resp 24 S; Pulse Ox 94% on 3 lpm NC; Pain 0/10; jd3 23:38 BP 105 / 58; Pulse 65; Resp 18; Pulse Ox 93% on 3 lpm NC; Pain 0/10; mg2 15:30 Body Mass Index 27.62 (89.81 kg, 180.34 cm) aa5 ED Course: 15:20 Patient arrived in ED. sb2 15:21 Ghanshyam Benavides MD is Private Physician. sb2 15:28 Triage completed. aa5 15:28 Arm band placed on. aa5 15:35 Anuja Singh RN is Primary Nurse. aj1 15:45 Patient has correct armband on for positive identification. Bed in low position. Call aj1 light in reach. Side rails up X 1. at bedside. residential monitor on. Pulse ox on. NIBP on. Notified Nurse Practitioner and/or Physician [employer] Developer of vital signs. 15:45 No provider procedures requiring assistance completed. Initial lab(s) drawn, by or, aj1 sent to lab. First set of blood cultures drawn by me. Inserted saline lock: 18 gauge in left antecubital area, using aseptic technique. Blood collected. 15:53 Arnie Haskins PA is PHCP. cp 15:53 Hugo Yadav MD is Attending Physician. cp 16:15 Second set of blood cultures drawn by me. aj1 16:30 Vogel cath inserted, using sterile technique, 16 Fr., by me, balloon inflated, to aj1 gravity drainage, urine specimen collected. returned 200cc cathy urine. Patient tolerated well. 16:45 X-ray completed. Portable x-ray completed in exam room. Patient tolerated procedure ml well. 16:46 Chest Single View XRAY In Process Unspecified. EDMS 16:48 EKG done, by oven technician. reviewed by Arnie RICHARDSON. sm3 17:46 CT Abd/Pelvis - Without Cont: no oral contrast In Process Unspecified. EDMS 18:55 initiated transfer with [facility]. eb 19:01 called and left message with the office of the [facility] eb for a Dr. Gentry Triplett at [phone]. The Dr coding consultant is Dr. Bello Singh will be calling back. 19:05 Lucia from [facility] called to decline transfer due to no bed availability . eb 19:13 Dr Nava connected with [facility]AR[facility] for patient consulation. eb 19:41 initiated transfer with Bart Witt with [facility] at the transfer center. eb 20:30 Inserted saline lock: 20 gauge in right antecubital area, using aseptic technique. aj1 20:36 Bart Witt called and denied the transfer due to capacity/ no ICU beds available. eb 20:42 Miguel Shelby MD is Attending Physician. cp 20:43 initiated transfer with [facility] with Ebony Charles at the Transfer Center. eb 20:[address] Gonzales the hospitalist at [facility] with [facility]ICHARDS[facility], they will be calling eb the surgeon and calling back. 22:13 Primary Nurse role handed off by Anuja Singh RN jd3 22:13 Tom Narvaez, EVE is Primary Nurse. jd3 23:25 Primary Nurse role handed off by Tom Narvaez, EVE jd3 23:26 Tom Narvaez, EVE is Primary Nurse. jd3 23:57 Patient transferred, IV remains in place. jd3 Administered Medications: Discontinued: NS 0.9% 1000 ml IV at 50 ml/hr continuous Discontinued: NS 0.9% (30 ml/kg) 30 ml/kg IV at bolus once; Sepsis Protocol 16:44 Drug: NS 0.9% 250 ml Route: IV; Rate: bolus; Site: left antecubital; aj1 21:44 Follow up: Response: No adverse reaction; IV Status: Completed infusion jd3 21:52 Follow up: IV Status: Completed infusion; IV Intake: 250ml aj1 16:44 Drug: NS 0.9% 1000 ml {Note: set by IV pump to begin infusing once 250cc bolus has aj1 completed.} Route: IV; Rate: 50 ml/hr; Site: left antecubital; :44 Follow up: Response: No adverse reaction; IV Status: Order to discontinue infusion jd3 18:15 Drug: LevaQUIN 500 mg Volume: 100 ml; Route: IVPB; Infused Over: 60 mins; Site: left [facility] antecubital; :44 Follow up: Response: No adverse reaction; IV Status: Completed infusion jd3 18:15 Drug: NS 0.9% (30 ml/kg) 30 ml/kg Route: IV; Rate: bolus; Site: left antecubital; aj1 20:34 Follow up: IV Intake: 1400ml aj1 23:59 Follow up: Response: No adverse reaction; IV Status: Order to discontinue infusion jd3 18:30 Drug: Albuterol 2.5 mg Route: Inhalation; aj1 18:30 Drug: Insulin Regular Human 10 units {Co-Signature: kr2 (Wendy Bello RN).} Route: IVP; aj1 Site: left antecubital; 22:08 Follow up: Response: No adverse reaction aj1 18:30 Drug: D50W 50 ml Route: IVP; Site: left antecubital; aj1 22:08 Follow up: Response: No adverse reaction aj1 18:45 Drug: Kayexalate 45 grams Route: PO; aj1 22:08 Follow up: Response: No adverse reaction aj1 19:35 Drug: Albuterol 2.5 mg Route: Inhalation; aj1 19:35 Drug: Zofran 4 mg Route: IVP; Site: left antecubital; aj1 21:43 Follow up: Response: No adverse reaction jd3 19:40 Drug: vancoMYCIN 1 grams {Note: given by Yanique PRADO.} Route: IVPB; Infused Over: 2 hrs; jd3 Site: left antecubital; 21:43 Follow up: Response: No adverse reaction; IV Status: Completed infusion jd3 21:40 Drug: Zosyn 3.375 grams Route: IVPB; Infused Over: 60 mins; Site: left antecubital; jd3 22:11 Follow up: Response: No adverse reaction; IV Status: Completed infusion jd3 23:55 Not Given (Physician Discretion): Levophed (4 mg/250 mL D5W 4 mcg/min IV at calculated jd3 rate Per protocol; (final concentration is 16 microgram/mL) Point of Care Testing: Blood Glucose: 16:30 Blood Glucose: 160 mg/dL; aj1 Ranges: Intake: 20:34 IV: 1400ml; Total: 1400ml. aj1 21:52 IV: 250ml; Total: 1650ml. aj1 Outcome: 21:23 ER care complete, transfer ordered by . cp 23:57 Transferred by ground EMS to [facility], Transfer form completed. jd3 X-rays sent w/ patient. 23:57 Condition: stable 23:57 Instructed on the need for transfer, Demonstrated understanding of instructions. 09/02 00:00 Patient left the ED. jd3 Signatures: Dispatcher [employer] EDMS Anuja Singh RN RN aj1 Raquel Raman Audri RN RN aa5 Arnie Haskins PA PA cp Davies, Jonathon, RN RN jd3 Camila Robbins2 Ebony Timmons Michele, RN RN [facility] Kaya Marin 3 Wendy Bello RN kr2 Corrections: (The following items were deleted from the chart) 09/01 15:28 15:25 Presenting complaint: aa5 aa5 17:59 17:58 Reassessment: Transported patient to CT via stretcher, accompanied by me. aj1 aj1 :31 15:45 Respiratory: Airway is patent Respiratory effort is even, unlabored, Respiratory aj1 pattern is regular, symmetrical, Breath sounds are clear bilaterally. aj1 : 18:02 Respiratory: Airway is patent Respiratory effort is even, unlabored, Respiratory aj1 pattern is regular, symmetrical, Breath sounds are clear bilaterally. aj1 :32 19:00 Respiratory: Airway is patent Respiratory effort is even, unlabored, Respiratory aj1 pattern is regular, symmetrical, Breath sounds are clear bilaterally. aj1 :02 21:00 initiated transfer with [facility] with Ebony Charles at the Transfer eb Center. eb 21:04 20:56 initiated transfer with [facility] with Ebony Charles at the Transfer eb Center. eb 21:42 19:41 vancoMYCIN 1 grams IVPB in left antecubital over 2 hrs jd3 jd3 21:56 15:45 Cardiovascular: Denies chest pain, palpitations, shortness of breath, Heart tones aj1 S1 S2 present Patient's skin is warm and dry. pacemaker present, venous access present to right upper chest. Patient's states that it is an accessed portacath and the PICC line in sewn into place accessing it. Occlusive dressing covering access site dry and intact. Rhythm is regular Chest pain is denied aj1 22:07 20:00 Cardiovascular: Patient's skin is warm and dry. aj1 aj1 22:16 20:55 Respiratory: Airway is patent Respiratory effort is even, unlabored, Respiratory jd3 pattern is regular, symmetrical, Breath sounds with rales in right posterior lower lobe and left posterior lower lobe and left upper quadrant and right upper quadrant and left lower quadrant and right lower quadrant jd3
--- NOTE | 2017-09-01 21:24 | EDPHYS ---
Physician Documentation [facility] Name: Dyllan Narvaez Age: 62 yrs Sex: Male : 1955 Arrival Date: 09/01/2017 Time: 15:20 Bed 4 Private MD: Ghanshyam Benavides T ED Physician Miguel Shelby HPI: 09/01 16:30 This 62 yrs old Male presents to ER via Wheelchair with complaints of Urinary cp Retention. 16:30 The patient presents with urinary retention. cp 16:30 Onset: The symptoms/episode began/occurred today. Associated signs and symptoms: cp Pertinent positives: lower extremity edema, weight gain, Pertinent negatives: constipation, diarrhea, fever. Severity of symptoms: in the emergency department the symptoms are unchanged, despite home interventions. Historical: - Allergies: 15:30 Oxycodone; aa5 15:30 Keflex; aa5 - PMHx: 15:30 TIA; COPD; CHF; Atrial Fib; Perforated colon; aa5 - PSHx: 15:30 CABG; BKA; Heart stents; aa5 - Immunization history:: Pneumococcal vaccine is not up to date. - Social history:: Smoking status: Patient/guardian denies using tobacco. - Ebola Screening: : No symptoms or risks identified at this time. ROS: 16:35 Constitutional: Negative for body aches, chills, fever, poor PO intake. cp 16:35 Eyes: Negative for injury, pain, redness, and discharge. cp 16:35 ENT: Negative for drainage from ear(s), ear pain, sore throat, difficulty swallowing, difficulty handling secretions. 16:35 Cardiovascular: Positive for edema, Negative for chest pain, palpitations. 16:35 Respiratory: Positive for shortness of breath, at rest. Negative for cough, hemoptysis, wheezing. 16:35 Abdomen/GI: Positive for abdominal distension, Negative for abdominal pain, nausea and vomiting, black/tarry stool, rectal bleeding. 16:35 : Positive for urinary retention, Negative for urinary frequency, bladder incontinence. 16:35 Skin: Negative for cellulitis, rash. 16:35 Neuro: Negative for altered mental status, dizziness, headache, syncope, near syncope. 16:35 All other systems are negative. Exam: 16:45 Constitutional: The patient appears alert, awake, non-diaphoretic, well developed, well cp nourished, obviously ill. 16:45 Head/Face: Normocephalic, atraumatic. cp 16:45 Eyes: Periorbital structures: appear normal, Pupils: equal, round, and reactive to light and accomodation, Extraocular movements: intact throughout, Conjunctiva: normal, no exudate, no injection, Sclera: no appreciated abnormality, Lids and lashes: appear normal, bilaterally. 16:45 ENT: External ear(s): are unremarkable, Ear canal(s): are normal, clear, TM's: bulging, is not appreciated, bilaterally, dullness, bilaterally, erythema, is not appreciated, bilaterally, Nose: is normal, Mouth: Lips: dry, Oral mucosa: moist, Posterior pharynx: is normal, airway is patent, no erythema, no exudate, Voice: is normal. 16:45 Neck: ROM/movement: is normal, is supple, without pain, no range of motions limitations, no meningismus, no nuchal rigidity. 16:45 Chest/axilla: Inspection: normal, Palpation: is normal, no crepitus, no tenderness. 16:45 Cardiovascular: Rate: normal, Rhythm: regular, Pulses: Pulses are 2+ in right radial artery and left radial artery. Edema: mild left lower leg, JVD: is not appreciated. 16:45 Respiratory: mild respiratory distress is noted, Respirations: labored breathing, that is mild, Breath sounds: decreased breath sounds, that are moderate, are located in both bases, stridor, is not appreciated, wheezing: is not appreciated. 16:45 Abdomen/GI: Inspection: distension, that is moderate, Bowel sounds: active, all quadrants, Palpation: soft, in all quadrants, mild abdominal tenderness, in the right upper quadrant, rebound tenderness, is not appreciated, voluntary guarding, is not appreciated, involuntary guarding, is not appreciated. 16:45 Back: pain, is absent, ROM is normal, CVA tenderness, is absent. 16:45 Musculoskeletal/extremity: Extremities: noted in the right leg: noted BKA. 16:45 Skin: cellulitis, is not appreciated, no rash present. 16:45 Neuro: Orientation: to person, place \T\ time. Mentation: lucid, able to follow commands, Cerebellar function: is grossly normal, Motor: moves all fours, general weakness without focal deficits. 16:46 ECG was reviewed by the Attending Physician. cp Vital Signs: 15:30 BP 80 / 47; Pulse 58; Resp 16 S; Temp 97.3(TE); Pulse Ox 90% on R/A; Weight 89.81 kg aa5 (R); Height 5 ft. 11 in. (180.34 cm) (R); Pain 0/10; 15:34 BP 82 / 46; aa5 15:45 BP 88 / 48; Pulse 59; Resp 22; Pulse Ox 96% on NC; aj1 16:00 BP 84 / 35; Pulse 59; Resp 22; Pulse Ox 96% on NC; aj1 16:15 BP 92 / 46; Pulse 60; Resp 24; Pulse Ox 98% on NC; aj1 16:30 BP 90 / 48; Pulse 59; Resp 20; Pulse Ox 99% on NC; aj1 16:45 BP 82 / 41; Pulse 60; Resp 20; Pulse Ox 97% on NC; aj1 17:02 BP 91 / 52; Pulse 61; Resp 24; Pulse Ox 96% on NC; aj1 17:15 BP 93 / 57; Pulse 60; Resp 22; Pulse Ox 95% on 3 lpm NC; aj1 17:30 BP 90 / 52; Pulse 61; Resp 24; Pulse Ox 95% on NC; aj1 18:00 BP 93 / 53; Pulse 61; Resp 22; Pulse Ox 98% on 3 lpm NC; aj1 18:15 BP 91 / 58; Pulse 60; Resp 24; Pulse Ox 98% on NC; aj1 18:30 BP 90 / 52; Pulse 64; Resp 22; Pulse Ox 94% on NC; aj1 18:45 BP 105 / 59; Pulse 60; Resp 26; Pulse Ox 94% on NC; aj1 19:00 BP 96 / 48; Pulse 60; Resp 24; Pulse Ox 94% on NC; aj1 19:15 BP 88 / 52; Pulse 64; Resp 24; Pulse Ox 93% on NC; aj1 19:30 BP 94 / 47; Pulse 61; Resp 26; Pulse Ox 94% on NC; aj1 19:45 BP 83 / 55; Pulse 62; Resp 20; Pulse Ox 94% on R/A; aj1 20:00 BP 100 / 52; Pulse 62; Resp 26; Pulse Ox 93% on R/A; aj1 20:15 BP 91 / 62; Pulse 62; Resp 24; Pulse Ox 93% on NC; aj1 20:55 BP 84 / 51; Pulse 64; Resp 24 S; Pulse Ox 93% on 3 lpm NC; jd3 21:21 BP 99 / 50; Pulse 63; Resp 23 S; Pulse Ox 97% on 3 lpm NC; Pain 0/10; jd3 22:10 BP 100 / 49; Pulse 62; Resp 24 S; Pulse Ox 94% on 3 lpm NC; Pain 0/10; jd3 23:38 BP 105 / 58; Pulse 65; Resp 18; Pulse Ox 93% on 3 lpm NC; Pain 0/10; mg2 15:30 Body Mass Index 27.62 (89.81 kg, 180.34 cm) aa5 MDM: 16:05 Patient medically screened. cp 17:00 Differential diagnosis: nonspecific abdominal pain, UTI, urinary retention, sepsis, cp pneumonia. 19:14 Physician consultation: DR Singh, oncall physician for DR Triplett. Will consult with cp DR Triplett and call back. 19:25 Data reviewed: vital signs, nurses notes, lab test result(s), EKG, radiologic studies, cp CT scan, plain films. 19:25 Test interpretation: by ED physician or midlevel provider: ECG, plain radiologic cp studies. Response to treatment: the patient's symptoms have mildly improved after treatment. 19:30 Physician consultation: DR Triplett reports [facility] is at saturation and admission cp beds unavailable . 09/01 16:08 Order name: Urine Microscopic Only; Complete Time: 17:00 09/01 16:08 Order name: Urine Culture 09/01 16:08 Order name: Basic Metabolic Panel; Complete Time: 17:41 09/01 17:42 Interpretation: Normal except: GLUC 160; CA 7.3; NA 123; K 6.0; CL 90; CO2 17; BUN 98; cp CRE 3.68; GFR 17. 09/01 16:08 Order name: Blood Culture Adult (2) 09/01 16:08 Order name: BNP; Complete Time: 18:10 09/01 22:28 Interpretation: Abnormal: BNP 4472. 09/01 16:08 Order name: CBC with Diff; Complete Time: 21:23 09/01 17:41 Interpretation: Normal except: WBC 9.5; RBC 2.85; HGB 8.6; HCT 25.9; RDW 20.0; TABITHA% cp 91.0; LYM% 3.3; NEUT A 8.6; LYMA 0.3. 09/01 16:08 Order name: Ckmb; Complete Time: 17:41 cp 09/01 16:08 Order name: CPK; Complete Time: 17:41 09/01 16:08 Order name: Lactate; Complete Time: 17:41 09/01 16:08 Order name: LFT's; Complete Time: 17:41 09/01 16:08 Order name: Lipase; Complete Time: 17:41 09/01 16:08 Order name: Procalcitonin; Complete Time: 17:41 09/01 16:08 Order name: Protime (+inr); Complete Time: 17:00 09/01 16:08 Order name: Ptt, Activated; Complete Time: 17:00 09/01 16:08 Order name: Troponin (emerg Dept Use Only); Complete Time: 17:03 09/01 16:08 Order name: Chest Single View XRAY; Complete Time: 17:00 09/01 16:35 Order name: Urine Dipstick--Ancillary (enter results); Complete Time: 16:51 09/01 16:51 Interpretation: Reviewed. 09/01 17:02 Order name: CT Abd/Pelvis - Without Cont: no oral contrast; Complete Time: 18:10 cp 09/01 20:21 Order name: BMP; Complete Time: 22:27 aj1 09/01 22:27 Interpretation: Normal except: NA 124; CL 93; CO2 17; GLUC 246; BUN 90; CRE 3.53; GFR cp 18. 09/01 20:34 Order name: CBC Smear Scan; Complete Time: 21:23 EDMS 09/01 22:06 Order name: Lactate Sepsis 2 HR Follow-up; Complete Time: 22:27 EDMS 09/01 22:27 Interpretation: Abnormal: LACTATE SEPSIS 32.9. 09/01 16:08 Order name: Accucheck; Complete Time: 16:29 cp 09/01 16:08 Order name: Cardiac monitoring; Complete Time: 16:24 09/01 16:08 Order name: EKG - Nurse/Tech; Complete Time: 16:57 09/01 16:08 Order name: IV Saline Lock - Large Bore; Complete Time: 16:25 cp 15 16:08 Order name: Labs collected and sent; Complete Time: 16:25 cp 09/01 16:08 Order name: O2 Per Protocol; Complete Time: 16:25 cp 09/01 16:08 Order name: O2 Sat Monitoring; Complete Time: 16:25 cp 09/01 16:08 Order name: Urine Dipstick-Ancillary (obtain specimen); Complete Time: 16:33 cp 09/01 16:19 Order name: Vogel; Complete Time: 16:24 cp 09/01 17:28 Order name: EKG Electrocardiogram; Complete Time: 23:55 EDMS 09/01 20:11 Order name: Labs - recollect needed; Complete Time: 21:43 eb EC:46 Rate is 61 beats/min. Rhythm is regular. AK interval is prolonged at 248 msec. QRS cp interval is prolonged at 150 msec. QT interval is prolonged at [address] changes noted. Interpreted by me. Reviewed by me. Administered Medications: Discontinued: NS 0.9% 1000 ml IV at 50 ml/hr continuous Discontinued: NS 0.9% (30 ml/kg) 30 ml/kg IV at bolus once; Sepsis Protocol 16:44 Drug: NS 0.9% 250 ml Route: IV; Rate: bolus; Site: left antecubital; [facility] 21:44 Follow up: Response: No adverse reaction; IV Status: Completed infusion jd3 21:52 Follow up: IV Status: Completed infusion; IV Intake: 250ml aj 16:44 Drug: NS 0.9% 1000 ml {Note: set by IV pump to begin infusing once 250cc bolus has aj1 completed.} Route: IV; Rate: 50 ml/hr; Site: left antecubital; :44 Follow up: Response: No adverse reaction; IV Status: Order to discontinue infusion jd3 18:15 Drug: LevaQUIN 500 mg Volume: 100 ml; Route: IVPB; Infused Over: 60 mins; [facility]; :44 Follow up: Response: No adverse reaction; IV Status: Completed infusion jd3 18:15 Drug: NS 0.9% (30 ml/kg) 30 ml/kg Route: IV; Rate: bolus; Site: left antecubital; [facility] 20:34 Follow up: IV Intake: 1400ml aj1 23:59 Follow up: Response: No adverse reaction; IV Status: Order to discontinue infusion jd3 18:30 Drug: Albuterol 2.5 mg Route: Inhalation; aj1 18:30 Drug: Insulin Regular Human 10 units {Co-Signature: kr2 (Wendy Bello RN).} Route: IVP; aj1 Site: left antecubital; 22:08 Follow up: Response: No adverse reaction aj1 18:30 Drug: D50W 50 ml Route: IVP; Site: left antecubital; aj1 22:08 Follow up: Response: No adverse reaction aj1 18:45 Drug: Kayexalate 45 grams Route: PO; aj1 22:08 Follow up: Response: No adverse reaction aj1 19:35 Drug: Albuterol 2.5 mg Route: Inhalation; aj1 19:35 Drug: Zofran 4 mg Route: IVP; Site: left antecubital; aj1 21:43 Follow up: Response: No adverse reaction jd3 19:40 Drug: vancoMYCIN 1 grams {Note: given by Yanique PRADO.} Route: IVPB; Infused Over: 2 hrs; jd3 Site: left antecubital; 21:43 Follow up: Response: No adverse reaction; IV Status: Completed infusion jd3 21:40 Drug: Zosyn 3.375 grams Route: IVPB; Infused Over: 60 mins; Site: left antecubital; jd3 22:11 Follow up: Response: No adverse reaction; IV Status: Completed infusion jd3 23:55 Not Given (Physician Discretion): Levophed (4 mg/250 mL D5W 4 mcg/min IV at calculated jd3 rate Per protocol; (final concentration is 16 microgram/mL) Point of Care Testing: Blood Glucose: 16:30 Blood Glucose: 160 mg/dL; aj1 Ranges: Critical Glucose Levels:Adult <50 mg/dl or >400 mg/dl <40 mg/dl or >180 mg/dl Disposition: 09/01/17 21:[address] [facility]. Diagnosis are Other sepsis, Hypotension, Pneumoperitoneum, End stage renal disease, Unspecified combined systolic (congestive) and diastolic (congestive) heart failure. - Reason for transfer: Higher level of care. - Accepting physician is DR Estevez. - Condition is Critical. - Problem is new. - Symptoms have improved. Critical care time excluding procedures: 22:00 Critical care time: Bedside Care: 15 minutes, Consultation: 20 minutes, Family cp Intervention: 10 minutes. Total time: 45 minutes Addendum: 09/04/2017 10:21 Co-signature as Attending Physician, Miguel Shelby MD I agree with the assessment and w a plan of care. Signatures: Dispatcher [employer] EDOH Anuja Singh RN RN aj1 Shy Smith RN RN aa5 Arnie Haskins PA PA cp Miguel Shelby MD MD wa Davies, Jonathon RN RN jd3 Ebony Timmons RN kr2 Corrections: (The following items were deleted from the chart) 09/01 17:19 16:54 Abdomen Pelvis W Con+CT.RAD.BRZ ordered. [facility] ED[facility] 17:41 17:41 Normal except: WBC 9.5; RBC 2.85; HGB 8.6; HCT 25.9; RDW 20.0; TABITHA% 91.0; LYM% cp 3.3. cp 21:25 21:23 09/01/2017 21:[address] [facility]. Diagnosis is cp Other sepsis; Hypotension. Reason for transfer: Higher level of care. Accepting physician is DR Estevez. Condition is Critical. Problem is new. Symptoms have improved. cp 09/02 00:00 09/01 21:25 09/01/2017 21:[address] [facility]. jd3 Diagnosis is Other sepsis; Hypotension; Pneumoperitoneum; End stage renal disease; Unspecified combined systolic (congestive) and diastolic (congestive) heart failure. Reason for transfer: Higher level of care. Accepting physician is DR Estevez. Condition is Critical. Problem is new. Symptoms have improved. cp 09/02 19:10 19:04 Onset: The symptoms/episode began/occurred today, cp cp 19:10 19:04 Associated signs and symptoms: Pertinent positives: abdominal pain, general cp weakness, Pertinent negatives: chest pain, constipation, cough, diarrhea, dysuria, fever, vomiting, cp
--- NOTE | 2017-09-02 06:15 | EKG ---
Test Date: 2017-09-01 Test Time: 16:41:58 Lcpc: [facility] MEASUREMENT RESULTS: Intervals: Rate: 61 [place]: 248 QRSD: 150 QT: 588 QTc: 591 [place]: P: 46 [place]: 248 QRS: 96 T: -59 INTERPRETIVE STATEMENTS: Sinus rhythm with 1st degree AV block Nonspecific intraventricular block Abnormal ECG Compared to ECG 11/03/2014 17:26:24 First degree AV block now present Ventricular premature complex(es) no longer present Anterior injury pattern is no longer present Electronically Signed On 09-02-17 06:14:53 CDT by Gregorio Enriquez
== END 2017-09-02 | disposition short-term general hospital (02) ==
LOC: ER 15:17
DX: A41.9 Sepsis, unspecified organism (principal); K66.8 Other specified disorders of peritoneum; I95.9 Hypotension, unspecified; I50.40 Unspecified combined systolic (congestive) and diastolic (congestive) heart failure; N18.6 End stage renal disease; I48.91 Unspecified atrial fibrillation; Z95.1 Presence of aortocoronary bypass graft; Z95.818 Presence of other cardiac implants and grafts; Z88.5 Allergy status to narcotic agent; Z88.8 Allergy status to other drugs, medicaments and biological substances
CPT/HCPCS: 36415; 51702; 71045; 74176; 80048 ×2; 80076; 82550; 82553; 82962; 83605 ×2; 83690; 83880; 84145; 84484; 85025; 85610; 85730; 87040 ×2; 87086; 87205 ×3; 93005; 96365; 96366; 96367; 96375; 99285; J2405; J2543; J3370; J7030 ×2; 81003; 81015; 87088